=== PATIENT | female | born 1940 | race Caucasian/White ===

== ENCOUNTER 2017-04-10 05:10 | Inpatient (IN) | payer OTHER ==
--- NOTE | 2017-03-15 13:42 | HISTORY & PHYSICAL EXAMINATION ---
DATE OF ADMISSION: 04/10/2017 CHIEF COMPLAINT: Right knee pain. HISTORY OF PRESENT ILLNESS: Ms. Servin is a 76-year-old female with a 6-year history of right knee pain. The patient rates her worst pain at 10/10. She has pain with her daily activities. She has limited standing and walking tolerance. Pain is worse with weightbearing. The patient has had injections, physical therapy and NSAIDs without relief. She has failed conservative treatment and is scheduled for right knee replacement. PAST MEDICAL HISTORY: Hypertension, somewhat uncontrolled. She is currently being followed with her PCP. Systolics today was 175/102. Hypercholesterolemia, acid reflux, obesity with BMI of 42. She denies heart disease, diabetes or DVT. PAST SURGICAL HISTORY: Left total knee arthroplasty. SOCIAL HISTORY: The patient denies alcohol or tobacco use. She lives in a single story home. She is and retired. FAMILY HISTORY: Negative for DVT. MEDICATIONS: Duloxetine 30 mg daily, omeprazole 20 mg daily, lisinopril 20 mg daily, Aleve p.r.n., and Tylenol p.r.n. ALLERGIES: None. REVIEW OF SYSTEMS: See HPI. Ten other systems reviewed, all negative. PHYSICAL EXAMINATION: VITAL SIGNS: Height 5 feet 4 inches. Weight 220 pounds. BMI is 42. GENERAL: This is a well-developed and well-nourished female who is alert and oriented x3. Mood and affect are appropriate. HEENT: Normocephalic and atraumatic. Mucous membranes are moist and intact. NECK: Supple without lymphadenopathy. HEART: Regular rate and rhythm without murmurs, rubs or gallops. LUNGS: Clear to auscultation without wheezes or rhonchi. ABDOMEN: Soft and nontender. Bowel sounds are equal and active. EXTREMITIES: No ecchymosis, redness or warmth. Thigh and calf are soft and nontender. She does have some varicosities Distally. She has neutral alignment with moderate effusion. Range of motion is from 0-110 degrees with +2 medial laxity. She is neurovascularly intact with +5/5 strength. X-RAY EXAMINATION: AP and lateral views showed joint space narrowing and osteophyte formation. IMPRESSION: Degenerative joint disease, right knee. PLAN: The patient will be admitted for a right total knee arthroplasty by Dr. Fields. Her PCP is Dr. Wilkerson in [facility]. She is planning to do a home physical therapy with [facility] upon discharge. Referral has already been faxed. With her previous TKA, she had significant nausea and vomiting. I would recommend scopolamine patch intraoperatively. She is also requesting Tylenol and tramadol only for postop pain control.
--- NOTE | 2017-03-15 15:49 | PAT Medication Instructions ---
Service Date Mar 15, 2017. Current Home Medication List Acetaminophen Tab (Tylenol), 325 MG PO Q4H PRN for Pain Duloxetine Hcl (Cymbalta), 30 MG PO QAM Lisinopril (Prinivil), 20 MG PO QAM Naproxen (Aleve), 220 MG PO Q6H Omeprazole (Omeprazole), 1 TAB PO QAM Medication Instructions For Your Scheduled Surgery - Hold the following medications the morning of surgery: Lisinopril (Prinivil), 20 MG PO QAM Naproxen (Aleve), 220 MG PO Q6H (otherwise okay to continue per surgeon) - Take the following medications as scheduled the night before surgery: Acetaminophen Tab (Tylenol), 325 MG PO Q4H PRN for Pain (may take if needed up to 4 hours prior to surgery) Duloxetine Hcl (Cymbalta), 30 MG PO QAM Omeprazole (Omeprazole), 1 TAB PO QAM If you have any questions please call us at [phone] or [phone] or [phone]
[2017-03-15 16:01] VITALS: BMI 37.0
[2017-03-15 16:09] LABS: BASO % 0.3 %; BASO ABS # 0.02 K/uL (0-0.2); COMPLETE YES; EOS % 3.8 %; HEMATOCRIT 40.2 % (37-47); IG% 0.2 %; LYMPH % 30.1 %; LYMPH ABS # 1.89 K/uL (1.2-3.4); MEAN CELL VOLUME 92.8 fL (80-100); MEAN CORPUSCULAR HEMOGLOBIN 30.9 pg (25-34); MEAN CORPUSCULAR HGB CONC 33.3 g/dl (32-36); MEAN PLATELET VOLUME 10.3 fL (7.4-10.4); MONO % 7.7 %; NEUT % 57.9 %; PLATELET COUNT 183 K/uL (130-400); RED BLOOD COUNT 4.33 M/uL (4.2-5.4); WHITE BLOOD COUNT 6.27 K/uL (4.8-10.8)
[2017-03-15 16:17] LABS: PARTIAL THROMBOPLASTIN RATIO 1.2; PROTHROMBIN TIME (PATIENT) 10.4 SECONDS (9.0-12.0)
[2017-03-15 16:30] LABS: MANUAL MICROSCOPIC REQUIRED? NO; REVIEW REQ? NO; URINE APPEARANCE CLEAR (CLEAR); URINE BILIRUBIN NEG (NEG); URINE COLOR YELLOW; URINE NITRITE NEG (NEG); URINE SPECIFIC GRAVITY 1.021 (1.000-1.030); UROBILINOGEN NEG (NEG)
--- NOTE | 2017-03-15 16:34 | DIAGNOSTIC IMAGING REPORT ---
CHEST PREADMISSION(PA/LAT) HISTORY: Preop. COMPARISON: Chest 03/09/2013. FINDINGS: The lungs are clear. Cardiac silhouette is normal in size. No pleural effusions. No pneumothorax. IMPRESSION: No acute process. Electronically signed by: Florentino Chase M.D. 03/15/2017 4:32 PM Dictated Date/Time: 03/15/2017 4:31 PM
[~2017-04-10] VITALS: Ht 162.6 cm; Wt 98.7 kg
[2017-04-10] VITALS (9 sets, daily range): BP systolic 129–177; BP diastolic 75–89; PULSE 62–79; TEMP 36.3–37; O2SAT 94–100; Ht 162.6 cm; Wt 98.7 kg
[~2017-04-10 05:10] MED LIST: ACET325T96 PO; CYM/30 PO; LISI20TA3 PO; NAPR1TAB9 PO; OMEP20TA PO
[2017-04-10] MEDS ORDERED: LACTATED RINGER'S 1000ML 500 ML IV ONE (06:00)
[2017-04-10] MEDS ORDERED: ROPIVACAINE 5MG/ML 30 ML 150 MG, BUPIVACAINE/EPINEPHR 0.5% MPF 30 ML, KETOROLAC TROMETH... INFIL SCH ×7 (06:00)
[2017-04-10] MEDS ORDERED: LACTATED RINGER'S 1000ML 1,000 ML IV SCH (06:00)
[2017-04-10] MEDS ORDERED: CEFAZOLIN 2000MG IV PUSH 10 ML IV SCH (06:00)
[2017-04-10] MEDS ORDERED: BUPIVACAINE 0.5 % 5 MG/1 ML PF 10ML VIAL ONE (06:31)
[2017-04-10] MEDS ORDERED: MIDAZOLAM HCL 1 MG/ML 2ML VIAL ONE ×2 (06:40)
[2017-04-10] MEDS ORDERED: SCOPOLAMINE 1.5 MG TDSY TD ONE (06:44)
[2017-04-10] MEDS ORDERED: BACITRACIN 50000 UNIT VIAL ONE (06:56)
[2017-04-10] MEDS ORDERED: POVIDONE-IODINE OP SOLN 30 ML BTL ONE (06:56)
[2017-04-10] MEDS ORDERED: ATROPINE SULFATE 0.1 MG/ML 5ML SYR IV PRN (07:00)
[2017-04-10] MEDS ORDERED: EpHEDrine SULFATE INJ 50 MG/ML AMP IV PRN (07:00)
[2017-04-10] MEDS ORDERED: ONDANSETRON INJ 2 MG/ML 2 ML VIAL IV PRN ×2 (07:00→09:00)
[2017-04-10] MEDS ORDERED: NURSING VERBAL MED ORDER ONE (07:00)
[2017-04-10] MEDS ORDERED: FENTANYL CITRATE INJ 50 MCG/1 ML 2 ML VIAL IV PRN (07:00)
--- NOTE | 2017-04-10 07:07 | History & Physical Bridge Note ---
H&P Re-Evaluation Bridge Note: I have examined the patient, reviewed the History & Physical and in the interval since the performance of the History & Physical I have noted the following changes of clinical significance: No changes noted
[2017-04-10] MEDS ORDERED: LIDOCAINE HCL 2% 2 ML VIAL (20MG/ML) ONE (07:39)
[2017-04-10] MEDS ORDERED: PROPOFOL IV EMULSION 10 MG/ML 20 ML VIAL IV ONE ×2 (07:39→08:36)
[2017-04-10] MEDS ORDERED: ONDANSETRON INJ 2 MG/ML 2 ML VIAL ONE (07:42)
--- NOTE | 2017-04-10 08:19 | [facility] Operative Report ---
Operative Report Operative Date Apr 10, 2017. Pre-Operative Diagnosis Degenerative Joint Disease, Right Knee Post-Operative Diagnosis Degenerative Joint Disease, Right Knee Procedure(s) Performed Right Total Knee Arthroplasty Cemented utilizing An[employer]jar [employer] Nephew journey to patient-matched total knee arthroplasty size 3 femur to tibia 10 Ann Marie [address] Rob Fields Caustic Loader Surgeon(s) Elliott Vergara PA-C Estimated Blood Loss 5cc Findings Patient presents with severe end-stage tricompartmental degenerative joint disease of the right knee Nourse wants to conservative therapy x-rays revealed evidence of subchondral cystic changes medial osteophytes subchondral sclerosis [id number] changes varus alignment Specimens As Per Surgoekimberly Olivas. Right Knee Bone and Tissue Complication(s) None Disposition Recovery Room / PACU Indications Patient presents after failing attempts at conservative management including physical therapy anti-inflammatories relative rest activity modification with severe end-stage DJD of the and the patient presents for total knee arthroplasty after failing attempts injections viscous supplementations relative rest activity modifications bracing Description of Procedure After proper prepping and draping of the Right lower extremity anterior midline incision was made over the region of the extensor extensor mechanism after meticulous hemostasis was obtained and maintained in subcutaneous tissues a medial parapatellar incision was made The patella was subluxed lateralward the medial lateral gutter were cleaned from any hypertrophic synovitis and scar tissue of the distal femoral block was placed and the distal femoral osteotomy cut was made subsequently the chamfers anterior and posterior osteotomy cuts were made utilizing the 4-in-1 block the tibia was subsequently subluxed anteriorward medial and ateral meniscal remnants were excised in their entirety remnants of the anterior and posterior cruciate ligaments were excised in their entirety excellent exposure of the proximal tibia was obtained the tibial osteotomy guide was placed on the proximal tibial osteotomy cut was made once again the knee was irrigated with copious amounts of sterile saline solution the patella was subsequently everted lateralward thickened scar tissue around the patella was removed the patella was subsequently cut utilizing a freehand technique and was drilled prepared for final preparation and placement of patella socially flexion-extension gaps were checked and the equal and symmetric trials were placed to the appropriate femoral and tibial trials with poly-spacer being placed for equal flexion and extension gaps and full range of motion including extension to 0 and flexion to 140 the trial components after having been taken to recovery range of motion was subsequently removed meticulous hemostasis was obtained and maintained subsequently a knee block injection of joint cocktail including ropivacaine 0.5% 150 mg. Bupivacaine 0.5 % epinephrine 1-200,030 mL's toradol 30 mg dexamethasone 4 mg ketamine 10 mg clonidine 100 micrograms normal saline solution 30 mg was infiltrated into the soft tissues of the posterior knee medial lateral gutters and periosteal synovium special attention was paid to protect neurovascular structures at all times subsequently trial components having been removed the knee was irrigated with sterile saline solution. debris was removed the proximal tibia was subsequently prepared and was made ready for the placement of the tibial component tibial component was also cemented and tamped into position the femoral component was subsequently placed and cemented in the position the patellar component was subsequently cemented in position because hemostasis once again obtained and maintained wound having been thoroughly irrigated with debridement and debridement lavage was performed as well as a medial parapatellar incision closed with #1 Vicryl in interrupted fashion subcutaneous was closed with #2 Vicryl skin was closed with skin clips. PA-C was necessary for prepping and drapping as well as wound closure of deep fascia Sub cutaneous tissue and skin and was necessary for the case. A sterile compressive dressing was placed patient was taken to recovery in stable condition of report dictated by Donnie I attest to the content of the Intraoperative Record and any orders documented therein. Any exceptions are noted below. I attest to the content of the Intraoperative Record and any orders documented therein. Any exceptions are noted below.
[2017-04-10] MEDS ORDERED: ZOLPIDEM TARTRATE 5 MG TAB PO PRN (09:00)
[2017-04-10] MEDS ORDERED: ALUMINUM/MAGNESIUM/SIMETH (MAALOX MAX) 30 ML UDC PO PRN (09:00)
[2017-04-10] MEDS ORDERED: SOD PHOSPHATE/SOD BIPHOSPHATE ENEMA 132 ML BTL PR PRN (09:00)
[2017-04-10] MEDS ORDERED: BISACODYL 10 MG SUPP PR PRN (09:00)
[2017-04-10] MEDS ORDERED: KETOROLAC TROMETHAMINE 15 MG/ML VIAL IV. PRN (09:00)
[2017-04-10] MEDS ORDERED: OXYCODONE HCL IR 5 MG TAB (IMMEDIATE RELEASE) PO PRN (09:00)
[2017-04-10] MEDS ORDERED: MAGNESIUM HYDROXIDE SUSP 30 ML UDC PO PRN (09:00)
[2017-04-10] MEDS ORDERED: MoRPHine SULFATE 2 MG/ML CARP IV PRN (09:00)
--- NOTE | 2017-04-10 09:37 | Anesthesiology Progress Note ---
Anesthesia Post Op Note Date & Time Apr 10, 2017 at 09:37 Vital Signs Pain Intensity: 0 Vital Signs Past 12 Hours Date Time Temp Pulse Resp B/P (MAP) Pulse Ox O2 Delivery O2 Flow Rate FiO2 04/10/17 09:05 65 23 116/61 100 Oxymask 10 04/10/17 08:55 36.1 68 22 110/55 100 Oxymask 10 04/10/17 05:50 36.8 73 18 177/89 96 Room Air Notes Mental Status: alert / awake / arousable, participated in evaluation Pt Amnestic to Procedure: Yes Nausea / Vomiting: adequately controlled Pain: adequately controlled Airway Patency, RR, SpO2: stable & adequate BP & HR: stable & adequate Hydration State: stable & adequate Neuraxial Anesthesia: was administered, sensory block is resolving Anesthetic Complications: no major complications apparent
[2017-04-10] MEDS: TRANEXAMIC ACID INJ 1,000 MG in SYRINGE 0 ML IV SCH ×2 (09:52→11:11)
--- NOTE | 2017-04-10 09:53 | DIAGNOSTIC IMAGING REPORT ---
TWO VIEWS RIGHT KNEE CLINICAL HISTORY: Postoperative examination. FINDINGS: AP and crosstable lateral portable views of the right knee are obtained. A right knee arthroplasty is in near anatomic alignment. There has been undersurface remodeling of the patella. No acute fracture is seen. There are expected postoperative changes around the knee including a surgical drain, soft tissue edema, and subcutaneous gas. Atherosclerotic calcification is noted in the popliteal artery. IMPRESSION: Expected postoperative changes status post right knee arthroplasty. No acute fracture is seen. Electronically signed by: Mir Lindo M.D. 04/10/2017 9:51 AM Dictated Date/Time: 04/10/2017 9:51 AM
[2017-04-10] MEDS ORDERED: MoRPHine SULFATE 10 MG/ML CARP/VIAL IV PRN (10:45)
[2017-04-10] MEDS ORDERED: MoRPHine SULFATE 4 MG/ML 1 ML CARP\\VIAL IV PRN (10:45)
[2017-04-10] MEDS: D5W AND 1/2NSS + 20MEQ KCL 1,000 ML IV SCH ×2 (11:30→20:30)
[2017-04-10] MEDS: ACETAMINOPHEN 500 MG TAB PO SCH ×2 (13:47→22:28)
[2017-04-10] MEDS: CEFAZOLIN IV 2,000 MG in SYRINGE 0 ML IV SCH ×2 (15:05→22:29)
[2017-04-10] MEDS: DOCUSATE SODIUM 100 MG CAP PO SCH (20:30)
[2017-04-10] MEDS: SENNA 8.6 MG TAB PO SCH (20:30)
[2017-04-10] MEDS: ASPIRIN 81 MG ECTAB PO SCH (20:31)
[2017-04-11 03:41] VITALS: BP 131/77; PULSE 66; TEMP 36.8; O2SAT 97
[2017-04-11 05:55] LABS: HEMATOCRIT 34.2 % (37-47); MEAN CELL VOLUME 93.2 fL (80-100); MEAN CORPUSCULAR HEMOGLOBIN 31.3 pg (25-34); MEAN CORPUSCULAR HGB CONC 33.6 g/dl (32-36); MEAN PLATELET VOLUME 10.4 fL (7.4-10.4); PLATELET COUNT 143 K/uL (130-400); RED BLOOD COUNT 3.67 M/uL (4.2-5.4); WHITE BLOOD COUNT 10.62 K/uL (4.8-10.8)
[2017-04-11] MEDS: D5W AND 1/2NSS + 20MEQ KCL 1,000 ML IV SCH (05:59)
[2017-04-11] MEDS: ACETAMINOPHEN 500 MG TAB PO SCH ×3 (05:59→21:55)
[2017-04-11] MEDS ORDERED: TRANEXAMIC ACID INJ 1,000 MG in SYRINGE 0 ML IV SCH (06:00)
[2017-04-11 06:08] LABS: INR 1.1 (0.9-1.1); PROTHROMBIN TIME (PATIENT) 11.3 SECONDS (9.0-12.0)
[2017-04-11 06:24] LABS: BUN/CREATININE RATIO 12.9 (10-20); CREATININE 1.01 mg/dl (0.60-1.20); POTASSIUM 4.1 mmol/L (3.5-5.1)
[2017-04-11 07:02] VITALS: BP 146/75; PULSE 62; TEMP 36.7; O2SAT 98
--- NOTE | 2017-04-11 07:56 | Orthopedic Progress Note ---
Orthopedic Progress Note Date of Service Apr 11, 2017. Subjective Post OP Day: 1 Reports: feeling well Objective N/V intact (Footdrop noted), dressing C/D/I (Prevena and Hemovac in place) Date Time Temp Pulse Resp B/P (MAP) Pulse Ox O2 Delivery O2 Flow Rate FiO2 04/11/17 03:41 36.8 66 16 131/77 (95) 97 Room Air 04/10/17 23:45 Room Air 04/10/17 23:40 37.0 79 16 142/81 (101) 96 Room Air 04/10/17 19:56 37.0 77 18 137/79 (98) 94 Room Air 04/10/17 15:45 Nasal Cannula 2.0 04/10/17 15:19 36.6 62 18 159/82 (107) 98 Nasal Cannula 2.0 04/10/17 13:10 36.7 62 20 162/82 (108) 99 Nasal Cannula 2.0 04/10/17 11:56 36.5 62 16 154/88 (110) 98 Nasal Cannula 2.0 04/10/17 11:02 63 18 148/87 (107) 98 Nasal Cannula 2.0 04/10/17 10:27 65 17 157/84 (108) 100 Nasal Cannula 2.0 04/10/17 10:00 99 Nasal Cannula 2.0 04/10/17 10:00 99 Nasal Cannula 2.0 04/10/17 10:00 36.3 63 16 129/75 (93) 99 Nasal Cannula 2.0 04/10/17 09:35 36.2 64 16 130/65 97 Nasal Cannula 2 04/10/17 09:25 65 14 139/64 99 Nasal Cannula 2 04/10/17 09:15 65 14 124/62 98 Nasal Cannula 2 04/10/17 09:05 65 23 116/61 100 Oxymask 10 04/10/17 08:55 36.1 68 22 110/55 100 Oxymask 10 Laboratory Results 24 Hours: Test 04/11/17 05:26 Hematocrit 34.2 % Hemoglobin 11.5 g/dL Prothromb Time International Ratio 1.1 Prothrombin Time 11.3 SECONDS Assessment & Plan Assessment: 76 yo female stable POD #1 s/p right TKA, footdrop Plan: 1. Med management 2. DVT prophylaxis- ASA, SCDs 3. PT/OT 4. D/C planning- home w/ HH
[2017-04-11] MEDS: DULOXETINE (CYMBALTA) 30 MG CAP PO SCH (09:27)
[2017-04-11] MEDS: MULTIVITAMIN TAB PO SCH (09:27)
[2017-04-11] MEDS: DOCUSATE SODIUM 100 MG CAP PO SCH ×2 (09:27→21:06)
[2017-04-11] MEDS: PANTOprazole SOD 40 MG TAB PO SCH (09:27)
[2017-04-11] MEDS: TRAMADOL HCL 50 MG TAB PO PRN (09:27)
[2017-04-11] MEDS: ASPIRIN 81 MG ECTAB PO SCH ×2 (09:27→21:06)
[2017-04-11] MEDS: CeleBREX 200 MG CAP PO SCH ×2 (09:28→21:07)
[2017-04-11 15:00] VITALS: BP 149/79; PULSE 66; TEMP 36.7; O2SAT 94
[2017-04-11] MEDS: SENNA 8.6 MG TAB PO SCH (21:06)
[2017-04-11 22:46] VITALS: BP 183/86; PULSE 81; TEMP 37; O2SAT 94
[2017-04-12] VITALS: BP 150/77
[2017-04-12] MEDS: ACETAMINOPHEN 500 MG TAB PO SCH (05:28)
[2017-04-12 06:39] VITALS: BP 154/87; PULSE 69; TEMP 36.5; O2SAT 97
[2017-04-12 07:49] VITALS: BP 140/70; PULSE 68; TEMP 36.8; O2SAT 97
[2017-04-12] MEDS: TRAMADOL HCL 50 MG TAB PO PRN (07:55)
[2017-04-12] MEDS: MULTIVITAMIN TAB PO SCH (07:56)
[2017-04-12] MEDS: CeleBREX 200 MG CAP PO SCH (07:56)
[2017-04-12] MEDS: DOCUSATE SODIUM 100 MG CAP PO SCH (07:56)
[2017-04-12] MEDS: ASPIRIN 81 MG ECTAB PO SCH (07:57)
[2017-04-12] MEDS: PANTOprazole SOD 40 MG TAB PO SCH (07:57)
[2017-04-12] MEDS: DULOXETINE (CYMBALTA) 30 MG CAP PO SCH (07:57)
--- NOTE | 2017-04-12 07:57 | Orthopedic Progress Note ---
Orthopedic Progress Note Date of Service Apr 12, 2017. Subjective Post OP Day: 2 Reports: feeling well, complaints (mild pain off and on in the thigh ) Objective calves soft nontender, N/V intact, dressing C/D/I (Prevena intact), A&O x3, toes mobile Date Time Temp Pulse Resp B/P (MAP) Pulse Ox O2 Delivery O2 Flow Rate FiO2 04/12/17 07:49 36.8 68 17 140/70 (93) 97 Room Air 04/12/17 06:39 36.5 69 16 154/87 (109) 97 Room Air 04/12/17 00:15 Room Air 04/12/17 00:00 150/77 (101) 04/11/17 22:46 37.0 81 16 183/86 (118) 94 Room Air 04/11/17 15:30 Room Air 04/11/17 15:00 36.7 66 16 149/79 (102) 94 Room Air 04/11/17 09:48 Room Air Assessment & Plan Assessment: 76 yo female stable POD #2 s/p right TKA, Foot drop resolved Plan: Continue PT Plan for dc to home today with Home Health services Inhouse Planning Pain Management: Celebrex, Ultram, Morphine, PO Tylenol, Oxy IR DVT Prophylaxis: TEDs, SCDs, ASA Discharge Planning Discharge Planning: home with home health
[2017-04-12 08:01] VITALS: O2SAT 97
[2017-04-12] MEDS ORDERED: ASPEC81 PO (08:03)
[2017-04-12] MEDS ORDERED: CLB200 PO (08:03)
[2017-04-12] MEDS ORDERED: ACET-24 PO (08:03)
[2017-04-12] MEDS ORDERED: SNK PO (08:03)
[2017-04-12] MEDS ORDERED: RXC5 PO (08:03)
--- NOTE | 2017-04-12 08:06 | Discharge Instructions ---
Discharge Instructions Date of Service Apr 12, 2017. Admission Reason for Admission: Right Knee Osteoarthritis Discharge Discharge Diagnosis / Problem: Right Knee Djd Discharge Goals Goal(s): Decrease discomfort, Improve function Activity Recommendations Activity Limitations: per Instructions/Follow-up section Weightbearing Status: Right weightbearing (as tolerated) . Instructions / Follow-Up Instructions / Follow-Up ACTIVITY RECOMMENDATIONS: SELF CARE INSTRUCTIONS AFTER TOTAL KNEE REPLACEMENT A. You may need to continue a physical therapy program after discharge from the hospital. There are several options available to you. Your doctor will assist you in selecting the best one for you. 1. An out-patient facility 2 to 3 times a week for therapy or home therapy. 2. Continue working on all exercises taught to you in the hospital. Your goals should be to increase bending of your knee to 90 degrees and beyond and to fully straighten your knee. B. You may progress at your own pace from walking with a walker or crutches to a cane; then to no assistive devices. C. Make walking a part of your daily routine. Be up as much as comfortable with rest periods throughout the day. Rest with leg elevation is very important. Use the ice wrap frequently for the first 3-4 weeks. D. There are no restrictions on activities. You may ride in a car, shop, participate in treatment specialist and all social activities. E. Wear the long elastic stockings (JANEE hose) 20 hours a day for 2 weeks after surgery. They can be removed several times a day for laundering and for a bath. F. You may shower, no tub baths until cleared by your doctor. SPECIAL CARE INSTRUCTIONS: VERY IMPORTANT TO READ AND REVIEW A. There are a few signs you need to watch for after you are home. Call [facility] if you notice any of the followin. Increased severe knee pain. Some pain is expected especially when you exercise. 2. Increased swelling in your leg or knee; pain or swelling of the calf muscle in either lower leg. 3. Any fluid drainage from the incision. 4. Shortness of breath or chest pain. B. Please call [facility] at if you have any concerns or questions about your operation or recovery. The doctor or his nurse will return your call promptly. C. You must take antibiotics before dental work, bladder, bowel or other surgery. Your doctor will provide you with a permanent care to carry describing this precaution. IMPORTANT: * REMEMBER TO TAKE ASPIRIN, 81 MG, TWICE DAILY FOR 4 WEEKS UNLESS OTHERWISE DIRECTED. THIS IS YOUR BLOOD THINNER. * HIGH RISK PATIENTS MAY BE PRESCRIBED A STRONGER BLOOD THINNER. THIS WILL BE PROVIDED AT DISCHARGE. * CALL IF INCREASED PAIN, REDNESS, DRAINAGE OR FEVER GREATER THAT 101. * WEAR JANEE HOSE 20 HOURS PER DAY FOR 2 WEEKS. * Prevena- This is a large suction dressing covering your incision. This will help pull any excess drainage from the wound and allow your incision to heal properly. You may shower with this if you can keep the unit outside of the shower. If any bleeding or leakage is noted please call your doctor's office. This will remain on your incision for 7 days and then should be removed. This can be done yourself or by the home nursing staff if applicable. The entire unit is disposable once removed. Once removed, keep incision clean and dry. If redness or drainage is noted, please call your surgeon. . FOLLOW UP VISIT: If appointment is not already scheduled: Please call [facility] to make a follow-up appointment for 2 weeks after your surgery at . Current Hospital Diet Patient's current hospital diet: Regular Diet Discharge Diet Recommended Diet: Regular Diet Procedures Procedures Performed: Right Total Knee Arthroplasty Cemented utilizing [employer]du[employer] Nephew journey to patient-matched total knee arthroplasty size 3 femur to tibia 10 Ann Marie 29 oval patella Pending Studies Studies pending at discharge: no Laboratory Results Hemoglobin A1c Test 03/15/17 15:39 Range/Units Estimated Average Glucose 100 mg/dl Hemoglobin A1c 5.1 4.5-5.6 % Medical Emergencies . Who to Call and When: Medical Emergencies: If at any time you feel your situation is an emergency, please call 911 immediately. . Non-Emergent Contact Non-Emergency issues call your: Surgeon Call Non-Emergent contact if: temperature is above 101.5, your pain is not controlled, your pain is worsening, wound has increased drainage, wound has increased redness . "Provider Documentation" section prepared by Jonny Ty. . VTE Core Measure Inpt VTE Proph given/why not?: Other Anticoagulation, T.E.D. Stockings, SCD's [place] Drug Monitoring Program Search Results: patient reviewed within database, no issues identified
[2017-04-12 08:34] VITALS: BP 140/70; PULSE 68; TEMP 36.8; O2SAT 97
[2017-04-12 09:26] VITALS: BP 150/81; PULSE 72; O2SAT 95
[2017-04-12] MEDS ORDERED: TRAM-453 PO (11:49)
--- NOTE | 2017-04-12 16:12 | Discharge Summary ---
Orthopedic Discharge Summary Admission Date/Reason Apr 10, 2017 at 06:45 Right Knee Osteoarthritis. Discharge Date/Disposition Apr 12, 2017 Home with services Diagnosis Principal Diagnosis: right knee djd Procedure(s) Performed Right Total Knee Arthroplasty Cemented utilizing Andu[employer] Nephew journey to patient-matched total knee arthroplasty size 3 femur to tibia 10 Ann Marie 29 oval patella Consultations NONE Medication Reconciliation New Medications: Tramadol Hcl (Ultram) 50 Mg Tab 50-100 MG PO Q4H, #60 TAB PRN PAIN Acetaminophen (Sb Non-Aspirin Extra Stre) 500 Mg Tab 1000 MG PO Q8 for 21 Days, #126 TAB Aspirin (Aspirin EC Low Dose) 81 Mg Ectab 81 MG PO BID for 30 Days Celecoxib (Celebrex) 200 Mg Cap 200 MG PO BID, #60 CAP Senna (Senna Lax) 8.6 Mg Tab 17.2 MG PO HS, #30 TAB hold for loose stools Continued Medications: Duloxetine Hcl (Cymbalta) 30 Mg Cap 30 MG PO QAM, CAP Lisinopril (Prinivil) 20 Mg Tab 30 MG PO QAM, TAB Omeprazole (Omeprazole) 20 Mg Tab 1 TAB PO QAM Discontinued Medications: Acetaminophen Tab (Tylenol) 325 Mg Tab 325 MG PO Q4H PRN for Pain, TAB Naproxen (Aleve) 220 Mg Tab 220 MG PO Q6H for Pain, TAB Admission Physical Exam As per Admitting History & Physical. Hospital Course Patient was a same day admission after undergoing a successful right TKA. she tolerated the procedure well. Post-operatively, her activity was progressed and well tolerated. Please refer to daily progress notes and PT notes for complete details. After exam on 04/12/17, patient felt to be stable for discharge home with HHPT. Patient will f/u in the office in 2 weeks for further evaluation including x-rays and incision check, sooner if having any issues or concerns. Below are pertinent labs/studies during their hospital stay: Last Vital Signs Documentation Date Time Temp Pulse Resp B/P (MAP) Pulse Ox O2 Delivery O2 Flow Rate FiO2 04/12/17 09:26 72 95 04/12/17 08:34 36.8 17 Room Air 04/12/17 07:49 140/70 (93) 04/10/17 15:45 2.0 Last Resulted CBC 04/11/17 05:26 Last Resulted BMP 04/11/17 05:26 Discharge Instructions ACTIVITY RECOMMENDATIONS: SELF CARE INSTRUCTIONS AFTER TOTAL KNEE REPLACEMENT A. You may need to continue a physical therapy program after discharge from the hospital. There are several options available to you. Your doctor will assist you in selecting the best one for you. 1. An out-patient facility 2 to 3 times a week for therapy or home therapy. 2. Continue working on all exercises taught to you in the hospital. Your goals should be to increase bending of your knee to 90 degrees and beyond and to fully straighten your knee. B. You may progress at your own pace from walking with a walker or crutches to a cane; then to no assistive devices. C. Make walking a part of your daily routine. Be up as much as comfortable with rest periods throughout the day. Rest with leg elevation is very important. Use the ice wrap frequently for the first 3-4 weeks. D. There are no restrictions on activities. You may ride in a car, shop, participate in school bus attendant and all social activities. E. Wear the long elastic stockings (JANEE hose) 20 hours a day for 2 weeks after surgery. They can be removed several times a day for laundering and for a bath. F. You may shower, no tub baths until cleared by your doctor. SPECIAL CARE INSTRUCTIONS: VERY IMPORTANT TO READ AND REVIEW A. There are a few signs you need to watch for after you are home. Call [facility] if you notice any of the followin. Increased severe knee pain. Some pain is expected especially when you exercise. 2. Increased swelling in your leg or knee; pain or swelling of the calf muscle in either lower leg. 3. Any fluid drainage from the incision. 4. Shortness of breath or chest pain. B. Please call [facility] at if you have any concerns or questions about your operation or recovery. The doctor or his nurse will return your call promptly. C. You must take antibiotics before dental work, bladder, bowel or other surgery. Your doctor will provide you with a permanent care to carry describing this precaution. IMPORTANT: * REMEMBER TO TAKE ASPIRIN, 81 MG, TWICE DAILY FOR 4 WEEKS UNLESS OTHERWISE DIRECTED. THIS IS YOUR BLOOD THINNER. * HIGH RISK PATIENTS MAY BE PRESCRIBED A STRONGER BLOOD THINNER. THIS WILL BE PROVIDED AT DISCHARGE. * CALL IF INCREASED PAIN, REDNESS, DRAINAGE OR FEVER GREATER THAT 101. * WEAR JANEE HOSE 20 HOURS PER DAY FOR 2 WEEKS. Zip Skin Closure You will be given instructions by nursing staff at the time of discharge to care for your Zip Closure System. This devices uses plastic straps to keep your incision closed and protected throughout your recovery. If you have any questions please refer to these instructions first. FOLLOW UP VISIT: If appointment is not already scheduled: Please call [facility] to make a follow-up appointment for 2 weeks after your surgery at .
== END 2017-04-12 12:33 | disposition home health service (06) | DRG 470 ==
LOC: C.ACU 05:10 → C.3E 06:45 → ENRESERV 09:30
PROVIDERS: ADMIT Orthopaedic Surgery; ATTEND Orthopaedic Surgery
PROC: 0SRC0J9 Replacement of Right Knee Joint with Synthetic Substitute, Cemented, Open Approach (ICD-10-PCS; principal; 2017-04-10 07:00)
DX: M17.11 Unilateral primary osteoarthritis, right knee (principal); Z68.41 Body mass index [BMI] 40.0-44.9, adult; I10 Essential (primary) hypertension; E78.00 Pure hypercholesterolemia, unspecified; K21.9 Gastro-esophageal reflux disease without esophagitis; E66.9 Obesity, unspecified; Z96.652 Presence of left artificial knee joint

== ENCOUNTER 2017-10-01 15:36 | Observation (INO) | payer OTHER ==
[~2017-10-01] VITALS: Ht 162.6 cm; Wt 95.1 kg
[~2017-10-01 15:36] MED LIST changes: +ACET-24 PO; -ACET325T96 PO; +ASPI-320 PO; +CLB200 PO; -NAPR1TAB9 PO; +SNK PO
[2017-10-01] MEDS ORDERED: ASPIRIN 324 MG CHEW PO STA (16:07)
[2017-10-01] MEDS ORDERED: HEPARIN 25000 UNIT/500 ML D5W ONE (16:29)
[2017-10-01] MEDS ORDERED: HEPARIN SOD (PORCINE) 1000 UNIT/ML 10 ML VIAL ONE (16:29)
[2017-10-01] MEDS ORDERED: OPTIRAY 320 IV PRN (16:30)
[2017-10-01 16:35] LABS: HEMATOCRIT 41.4 % (37-47); HEMOGLOBIN 14.3 g/dL (12.0-16.0); MEAN CORPUSCULAR HEMOGLOBIN 30.8 pg (25-34); MEAN CORPUSCULAR HGB CONC 34.5 g/dl (32-36); MEAN PLATELET VOLUME 9.8 fL (7.4-10.4); PLATELET COUNT 102 K/uL (130-400); RED CELL DISTRIBUTION WIDTH CV 14.2 % (11.5-14.5); RED CELL DISTRIBUTION WIDTH SD 46.2 fL (36.4-46.3); WHITE BLOOD COUNT 4.06 K/uL (4.8-10.8)
[2017-10-01 16:37] LABS: PTT PATIENT 29.9 SECONDS (21.0-31.0)
[2017-10-01 16:45] LABS: BASO % 0.2 %; BASO ABS # 0.01 K/uL (0-0.2); EOS % 0.5 %; EOS ABS # 0.02 K/uL (0-0.5); IG# 0.02 K/uL (0.00-0.02); LYMPH ABS # 0.77 K/uL (1.2-3.4); MONO % 9.6 %; MONO ABS # 0.39 K/uL (0.11-0.59); NEUT % 70.2 %; NEUT ABS # 2.85 K/uL (1.4-6.5)
[2017-10-01 16:47] LABS: CALCIUM 8.4 mg/dl (8.5-10.1); CREATININE 1.14 mg/dl (0.60-1.20); POTASSIUM 4.1 mmol/L (3.5-5.1)
[2017-10-01] MEDS ORDERED: DOXY1TAB6 PO (17:21)
--- NOTE | 2017-10-01 17:29 | DIAGNOSTIC IMAGING REPORT ---
CT ANGIOGRAM OF THE CHEST CLINICAL HISTORY: Atypical chest pain COMPARISON STUDY: Chest x-ray dated 03/15/2017 TECHNIQUE: Following the IV administration of 94 mL of Optiray-320, CT angiogram of the thorax was performed from the thoracic inlet to the lung bases utilizing the pulmonary embolus protocol. Images are reviewed in the axial, sagittal, and coronal planes. IV contrast was administered without complication. MIP imaging was performed. A dose lowering technique was utilized adhering to the principles of ALARA. CT DOSE: 449.33 mGy.cm FINDINGS: Right paratracheal lymph nodes are the upper limits of normal in size. There is no pathologic axillary or hilar lymphadenopathy. Atheromatous changes are present within the thoracic aorta. There is mild ectasia of the ascending thoracic aorta which measures 37 mm. There were no pulmonary artery filling defects to indicate acute pulmonary embolism. No pleural effusions are visualized. There are dependent groundglass opacities, likely atelectatic. There is respiratory motion artifact. IMPRESSION: 1. No evidence of acute pulmonary embolism 2. Dependent groundglass opacities, likely atelectatic Electronically signed by: Jordy Ballard M.D. 10/01/2017 5:27 PM Dictated Date/Time: 10/01/2017 5:24 PM
[2017-10-01] MEDS ORDERED: LISI-725 PO (17:36)
[2017-10-01] MEDS ORDERED: NAPR1TAB9 PO (17:36)
[2017-10-01] MEDS ORDERED: ACET-1256 PO (17:36)
[2017-10-01] MEDS ORDERED: LISI1TAB3 PO (17:41)
[2017-10-01] MEDS ORDERED: NITROGLYCERIN 0.4 MG SL PER TAB CHARGE SL PRN (18:00)
[2017-10-01] MEDS ORDERED: ONDANSETRON INJ 2 MG/ML 2 ML VIAL IV PRN (18:00)
[2017-10-01] MEDS ORDERED: POLYETHYLENE (MIRALAX) 17 GM PACK PO PRN (18:00)
[2017-10-01] MEDS ORDERED: ACETAMINOPHEN 325 MG TAB PO PRN (18:00)
--- NOTE | 2017-10-01 18:05 | EMERGENCY ROOM VISIT NOTE ---
History Report prepared by Barber: Cheikh Chery Under the Supervision of: Dr. Rob Orosco M.D. First contact with patient: 15:56 Chief Complaint: CHEST PAIN Stated Complaint: CHEST PAIN Nursing Triage Summary: Patient went to PCP Dr Wilkerson because she wasn't feeling well and c/o left neck pain into shoulder and down left arm. Patient states this happened 2 weeks ago and again today. Denies chest pain at the present time. C/o aches in all her joints today which patient states is worse than normal. History of Present Illness The patient is a 76 year old female with a history of hypertension who presents to the Emergency Room with complaints of intermittent left neck pain that radiates down into her left arm and shoulder blade that started 2 weeks ago. She states that she was in bed in the evening 2 weeks ago, and started having this achy, "awful" pain behind her left ear in her neck, down into her left shoulder blade, and down her left arm. The patient notes that she had no chest pain at the time, and her pain lasted the entire night. She says that laying down worsened the pain, but the pain was not worsened with movement. She says that she had another episode of the same pain today, and was seen by her family doctor (Dr. Wilkerson), and was sent here for evaluation due to an abnormal EKG. The patient adds that she has been short of breath on exertion over the past couple weeks, but exertion does not bring on any chest pain. She notes that she has been getting hot and cold at times, but denies any sweating. She adds that she has started having a cough today. The patient denies any abdominal pain, or worsening leg pain or swelling. She states that she has no pain currently, but has been feeling like she has "not been getting enough air" today. The patient says that she has no history of heart disease or clots in her lung. She notes that her siblings both have heart disease. The patient is a non-smoker. Source of History: patient Onset: 2 weeks ago Position: neck (left) Symptom Intensity: "awful" Quality: ache Timing: intermittent Modifying Factors (Worsening): other (laying down) Associated Symptoms: + cough, + SOB, No diaphoresis, No chest pain, No abdominal pain Note: Associated symptoms: Left shoulder blade pain down left arm. Denies worsening leg pain or swelling. Review of Systems See HPI for pertinent positives & negatives. A total of 10 systems reviewed and were otherwise negative. Past Medical & Surgical Medical Problems: (1) Elevated troponin (2) HTN (hypertension) (3) SOB (shortness of breath) Family History Heart disease Social History Smoking Status: Never Smoker Marital Status: Housing Status: lives with family Occupation Status: retired Current/Historical Medications Scheduled Lisinopril (Zestril), 30 MG PO DAILY Omeprazole (Omeprazole), 1 TAB PO QAM Scheduled PRN Acetaminophen (Tylenol), 1-2 TABS PO Q8 PRN for Pain or Fever Allergies Coded Allergies: Oxycodone (Verified Adverse Reaction, Intermediate, nausea, 04/10/17) Gabapentin (Verified Adverse Reaction, Unknown, NIGHTMARES, 04/10/17) Physical Exam Vital Signs Date Time Temp Pulse Resp B/P (MAP) Pulse Ox O2 Delivery O2 Flow Rate FiO2 10/01/17 17:34 77 20 161/83 96 Room Air 10/01/17 16:16 80 10/01/17 15:43 Room Air 10/01/17 15:40 36.9 81 16 183/102 95 Physical Exam Constitutional: Vital signs reviewed. Eyes: Pupils are equal round reactive to light. Conjunctiva are noninjected. ENT: Pharynx is clear without erythema or exudate. Mucous membranes are moist. Neck supple without meningeal signs. No midline tenderness to the cervical spine. Respiratory: Clear to auscultation bilaterally. Breath sounds are equal bilaterally. Cardiovascular: Regular rate and rhythm. No rubs or gallops. GI: Soft, nondistended and nontender. Bowel sounds are present. Musculoskeletal: No peripheral edema. No lower extremity tenderness. No scapular tenderness or shoulder tenderness on the left side. Integumentary: No cyanosis. Neurological: The patient is awake and alert. No focal deficits. Psychiatric: Normal affect. Medical Decision & Procedures ER Provider Diagnostic Interpretation: CT results as stated below per my review and radiologist interpretation. CT ANGIOGRAM OF THE CHEST CLINICAL HISTORY: Atypical chest pain COMPARISON STUDY: Chest x-ray dated 03/15/2017 TECHNIQUE: Following the IV administration of 94 mL of Optiray-320, CT angiogram of the thorax was performed from the thoracic inlet to the lung bases utilizing the pulmonary embolus protocol. Images are reviewed in the axial, sagittal, and coronal planes. IV contrast was administered without complication. MIP imaging was performed. A dose lowering technique was utilized adhering to the principles of ALARA. CT DOSE: 449.33 mGy.cm FINDINGS: Right paratracheal lymph nodes are the upper limits of normal in size. There is no pathologic axillary or hilar lymphadenopathy. Atheromatous changes are present within the thoracic aorta. There is mild ectasia of the ascending thoracic aorta which measures 37 mm. There were no pulmonary artery filling defects to indicate acute pulmonary embolism. No pleural effusions are visualized. There are dependent groundglass opacities, likely atelectatic. There is respiratory motion artifact. IMPRESSION: 1. No evidence of acute pulmonary embolism 2. Dependent groundglass opacities, likely atelectatic Electronically signed by: Jordy Ballard M.D. 10/01/2017 5:27 PM Dictated Date/Time: 10/01/2017 5:24 PM Laboratory Results 10/01/17 15:55 Red Blood Count 4.65, Mean Corpuscular Volume 89.0, Mean Corpuscular Hemoglobin 30.8, Mean Corpuscular Hemoglobin Concent 34.5, Mean Platelet Volume 9.8, Neutrophils (%) (Auto) 70.2, Lymphocytes (%) (Auto) 19.0, Monocytes (%) (Auto) 9.6, Eosinophils (%) (Auto) 0.5, Basophils (%) (Auto) 0.2, Neutrophils # (Auto) 2.85, Lymphocytes # (Auto) 0.77, Monocytes # (Auto) 0.39, Eosinophils # (Auto) 0.02, Basophils # (Auto) 0.01 10/01/17 15:55 Test 10/01/17 15:55 10/01/17 16:00 10/01/17 17:46 White Blood Count 4.06 K/uL (4.8-10.8) Red Blood Count 4.65 M/uL (4.2-5.4) Hemoglobin 14.3 g/dL (12.0-16.0) Hematocrit 41.4 % (37-47) Mean Corpuscular Volume 89.0 fL (80-100) Mean Corpuscular Hemoglobin 30.8 pg (25-34) Mean Corpuscular Hemoglobin Concent 34.5 g/dl (32-36) Platelet Count 102 K/uL (130-400) Mean Platelet Volume 9.8 fL (7.4-10.4) Neutrophils (%) (Auto) 70.2 % Lymphocytes (%) (Auto) 19.0 % Monocytes (%) (Auto) 9.6 % Eosinophils (%) (Auto) 0.5 % Basophils (%) (Auto) 0.2 % Neutrophils # (Auto) 2.85 K/uL (1.4-6.5) Lymphocytes # (Auto) 0.77 K/uL (1.2-3.4) Monocytes # (Auto) 0.39 K/uL (0.11-0.59) Eosinophils # (Auto) 0.02 K/uL (0-0.5) Basophils # (Auto) 0.01 K/uL (0-0.2) RDW Standard Deviation 46.2 fL (36.4-46.3) RDW Coefficient of Variation 14.2 % (11.5-14.5) Immature Granulocyte % (Auto) 0.5 % Immature Granulocyte # (Auto) 0.02 K/uL (0.00-0.02) Platelet Estimate DECREASED Prothrombin Time 11.0 SECONDS (9.0-12.0) Prothromb Time International Ratio 1.0 (0.9-1.1) Activated Partial Thromboplast Time 29.9 SECONDS (21.0-31.0) Partial Thromboplastin Ratio 1.2 Anion Gap 2.0 mmol/L (3-11) Est Creatinine Clear Calc Drug Dose 47.3 ml/min Estimated GFR () 54.1 Estimated GFR (Non- 46.7 BUN/Creatinine Ratio 13.7 (10-20) Calcium Level 8.4 mg/dl (8.5-10.1) Bedside Troponin I 0.360 ng/ml (0-0.045) Laboratory results as reviewed by me. Medications Administered Medications (Trade) Dose Ordered Sig/Jorge Route Start Time Stop Time Status Last Admin Dose Admin Aspirin (Aspirin Chew) 324 mg NOW STAT PO 10/01/17 16:07 10/01/17 16:08 DC 10/01/17 16:13 324 MG Heparin Sodium/ Dextrose (Heparin 25,000 Unit/500ml D5W) 25,000 unit STK-MED ONCE .ROUTE 10/01/17 16:29 10/01/17 16:30 DC 10/01/17 16:45 25,000 UNIT Heparin Sodium (Porcine) (Heparin Iv Bolus) 10,000 unit STK-MED ONCE .ROUTE 10/01/17 16:29 10/01/17 16:30 DC 10/01/17 16:43 5,000 UNIT ECG Per My Interpretation Indication: SOB/dyspnea Rate (beats per minute): 76 Rhythm: normal sinus Findings: ST depression (Lateral), other (ST elevation in AVR) ED Course 1558: The patient was evaluated in room A3. A complete history and physical exam was performed. 1607: Aspirin Chew 324 mg PO. 1616: Heparin Sodium/Dextrose 1 ea N/A. 1617: I reevaluated the patient and she has a troponin of 0.36. I discussed this with the patient and recommended IV Heparin. I discussed the risk and benefits of Heparin with her, and will obtain a CT. 163: I spoke with Rama Mccoy. We discussed the patient and her results. The patient will be further evaluated by Rama. 1754: I reevaluated the patient and let her know about the test results. She is not having any chest discomfort or back pain currently. She expressed understanding and agreement of the treatment plan. She will be evaluated for further treatment. Medical Decision This is a 76-year-old female presents with shoulder and back pain. Differential diagnosis includes anginal equivalent, acute coronary syndrome, pulmonary embolism, pneumothorax, pleurisy, cervical radiculopathy. I did perform a limited focused review of portions of the patient's old chart on the electronic medical record. The patient has had no recent pertinent visits to this hospital. I did evaluate the patient as noted above. IV access was established. The patient was placed on a continuous awake overnight monitor. I did order and personally review the patient's 12-lead EKG and chest x-ray as described above. The patient has ST elevation in aVR with some ST depressions in the precordial leads as well as the lateral leads. The patient is currently without any symptoms. She does not have any chest pain or any back or neck or shoulder pain. I did treat her with aspirin. I did order and review the patient's blood work as noted in the electronic medical record. The patient does have an elevated troponin. I did discuss risks and benefits with her regarding heparin. She did agree to heparin therapy. I did start her on IV heparin with a bolus and continuous drip. I did order a CT of the chest. I did review the images myself as well as the radiology report as described above. She does not have any evidence of pulmonary embolism. I did discuss the test results with the patient. I did discuss case with the hospitalist and case packer. She is currently asymptomatic. Medication Reconcilliation Current Medication List: was personally reviewed by me Blood Pressure Screening Patient's blood pressure: Elevated blood pressure Referred to hospitalist. Consults Time Called: 1630 Consulting Physician: Rama Mccoy Returned Call: 1635 I spoke with Rama Mccoy. We discussed the patient and her results. The patient will be further evaluated by Rama. Impression Primary Impression: Non-STEMI (non-ST elevated myocardial infarction) Critical Care I have personally spent 32 minutes of critical care time in the direct management of this patient. This includes bedside care, interpretation of diagnostic studies, and testing, discussion with consultants, patient, and family members, and other required patient management activities. This 32 minutes is in excess of all separately billable procedures. Scribe Attestation The scribe's documentation has been prepared under my direct and personally reviewed by me in its entirety. I confirm that the note above accurately reflects all work, treatment, procedures, and medical decision making performed by me. Departure Information Dispostion Being Evaluated By Hospitalist Referrals Loyd Wilkerson M.D. (PCP) Patient Instructions My [facility]
[2017-10-01] MEDS ORDERED: IV FLUIDS COMPLETED PRN (18:15)
[2017-10-01 18:28] VITALS: BP 165/93; PULSE 77; TEMP 37.6; O2SAT 97; Ht 162.6 cm; Wt 95.1 kg
[2017-10-01 19:28] VITALS: BP 165/91; PULSE 84; TEMP 37.1; O2SAT 96
--- NOTE | 2017-10-01 19:46 | History and Physical ---
History & Physical Date & Time of Service: Oct 01, 2017 at 18:15 Chief Complaint: Chest Pain Primary Care Physician: Loyd Wilkerson M.D. History of Present Illness Source: patient, family, clinic records, hospital records Pt is 76 y/o F with PMH HTN, dyslipidemia, GERD, CKD III presented to ER from PCP office. Patient states 2 weeks ago during the middle the night had left neck pain and left arm pain lasted all night with some associated shortness of breath and resolved. States 2 nights ago and 3 nights ago had left neck pain and left arm pain during the middle the night again with sensation that needed to take a deep breath and symptoms self resolved. Pain was aggravated with range of motion of left arm. Denies any injury or trauma. Pt states today feels tired, feels hot and has diffuse arthralgias and myalgias. States this morning had coughed a couple times which was nonproductive. Denies rhinorrhea, sore throat. Today at PCP office had temp of 38.2C tympanic. Patient reports couple of weeks ago had tick bite to posterior knee. Was treated with prophylactic doxycycline at that time. Denies any known rashes. Denies ill contacts. Reports influenza vaccine this season. Denies history of known CAD or lung disease. Denies diaphoresis, N/V/D/C, MARTINEZ, dizziness, syncope, vision changes, neck stiffness, hemoptysis, orthopnea, PND, palpitations, choking, otalgia, rhinorrhea, abdominal pain, paresthesias, extremity weakness, extremity edema, rashes, urinary symptoms, weight loss. Past Medical/Surgical History Medical Problems: (1) CKD (chronic kidney disease), stage III Status: Chronic (2) Dyslipidemia Status: Chronic (3) GERD (gastroesophageal reflux disease) Status: Chronic (4) HTN (hypertension) Status: Chronic Surgical Problems: (1) Hx of appendectomy Status: Resolved (2) Hx of hysterectomy Status: Resolved (3) Hx of tonsillectomy Status: Resolved (4) S/P TKR (total knee replacement) Status: Resolved Family History Diabetes mellitus Heart disease Social History Smoking Status: Never Smoker Smokeless Tobacco Use: No Alcohol Use: none Drug Use: none Marital Status: Occupational Status: retired Immunizations History of Influenza Vaccine: Yes Influenza Vaccine Date: Mar 09, 2013 History of Tetanus Vaccine?: Yes Tetanus Immunization Date: Apr 09, 2013 History of Pneumococcal: No History of Hepatitis B Vaccine: No Allergies Coded Allergies: Oxycodone (Verified Adverse Reaction, Intermediate, nausea, 04/10/17) Gabapentin (Verified Adverse Reaction, Unknown, NIGHTMARES, 04/10/17) Home Medications Scheduled Doxycycline (Monohydrate) (Doxycycline), 100 MG PO BID Lisinopril (Zestril), 30 MG PO DAILY Omeprazole (Omeprazole), 1 TAB PO QAM Scheduled PRN Acetaminophen (Tylenol), 1-2 TABS PO Q8 PRN for Pain or Fever Review of Systems Constitutional: + problem reported (+fatigue, fever - see HPI) Eyes: No worsening of vision, No eye pain, No redness, No diplopia ENT: No hearing loss, No unusual epistaxis, No tinnitus, No trouble swallowing Respiratory: + problem reported (see HPI), No sputum, No wheezing Cardiovascular: No chest pain, No orthopnea, No PND, No edema, No palpitations , No problem reported Abdomen: No pain, No nausea, No vomiting, No diarrhea, No constipation, No GI bleeding Musculoskeletal: + joint pain (see HPI) Genitourinary - Female: No dysuria, No urinary frequency, No urinary urgency, No hematuria Neurologic: No numbness/tingling, No vertigo Endocrine: No excessive thirst, No excessive urination Hematologic / Lymphatic: No abnormal bleeding/bruising, No clotting problems, No night sweats Integumentary: No itch Physical Exam Vital Signs Date Time Temp Pulse Resp B/P (MAP) Pulse Ox O2 Delivery O2 Flow Rate FiO2 10/01/17 17:34 77 20 161/83 96 Room Air 10/01/17 16:16 80 10/01/17 15:43 Room Air 10/01/17 15:40 36.9 81 16 183/102 95 General Appearance: WD/WN, no apparent distress Head: normocephalic, atraumatic Eyes: normal inspection, sclerae normal ENT: hearing grossly normal, pharynx normal, + pertinent finding (mucous membranes moist) Neck: supple, no JVD, trachea midline, + pertinent finding (non-tender, ROM intact, no neck stiffness) Respiratory/Chest: lungs clear, normal breath sounds, no respiratory distress Cardiovascular: regular rate, rhythm, no murmur, normal peripheral pulses Abdomen/GI: normal bowel sounds, non tender, soft Back: no CVA tenderness Extremities/Musculoskelatal: normal inspection, no calf tenderness, normal capillary refill, no pedal edema Neurologic/Psych: alert, normal mood/affect, oriented x 3 Skin: normal color, warm/dry Diagnostics Laboratory Results Results Past 24 Hours Test 10/01/17 15:55 10/01/17 16:00 10/01/17 17:46 10/01/17 18:03 Range/Units White Blood Count 4.06 4.8-10.8 K/uL Red Blood Count 4.65 4.2-5.4 M/uL Hemoglobin 14.3 12.0-16.0 g/dL Hematocrit 41.4 37-47 % Mean Corpuscular Volume 89.0 80-100 fL Mean Corpuscular Hemoglobin 30.8 25-34 pg Mean Corpuscular Hemoglobin Concent 34.5 32-36 g/dl Platelet Count 102 130-400 K/uL Mean Platelet Volume 9.8 7.4-10.4 fL Neutrophils (%) (Auto) 70.2 % Lymphocytes (%) (Auto) 19.0 % Monocytes (%) (Auto) 9.6 % Eosinophils (%) (Auto) 0.5 % Basophils (%) (Auto) 0.2 % Neutrophils # (Auto) 2.85 1.4-6.5 K/uL Lymphocytes # (Auto) 0.77 1.2-3.4 K/uL Monocytes # (Auto) 0.39 0.11-0.59 K/uL Eosinophils # (Auto) 0.02 0-0.5 K/uL Basophils # (Auto) 0.01 0-0.2 K/uL RDW Standard Deviation 46.2 36.4-46.3 fL RDW Coefficient of Variation 14.2 11.5-14.5 % Immature Granulocyte % (Auto) 0.5 % Immature Granulocyte # (Auto) 0.02 0.00-0.02 K/uL Platelet Estimate DECREASED Prothrombin Time 11.0 9.0-12.0 SECONDS Prothromb Time International Ratio 1.0 0.9-1.1 Activated Partial Thromboplast Time 29.9 21.0-31.0 SECONDS Partial Thromboplastin Ratio 1.2 Sodium Level 134 136-145 mmol/L Potassium Level 4.1 3.5-5.1 mmol/L Chloride Level 105 98-107 mmol/L Carbon Dioxide Level 27 21-32 mmol/L Anion Gap 2.0 3-11 mmol/L Blood Urea Nitrogen 16 7-18 mg/dl Creatinine 1.14 0.60-1.20 mg/dl Est Creatinine Clear Calc Drug Dose 47.3 ml/min Estimated GFR () 54.1 Estimated GFR (Non- 46.7 BUN/Creatinine Ratio 13.7 10-20 Random Glucose 99 70-99 mg/dl Calcium Level 8.4 8.5-10.1 mg/dl Bedside Troponin I 0.360 0-0.045 ng/ml Test 10/01/17 18:07 Range/Units Microbiology Results 10/01/17 Blood Culture, Ordered Pending 10/01/17 Blood Culture, Ordered Pending Diagnostic Radiology CT CHEST: IMPRESSION: 1. No evidence of acute pulmonary embolism 2. Dependent groundglass opacities, likely atelectatic Impression Assessment and Plan Pt is 76 y/o F with hx HTN, dyslipidemia, GERD, CKD III presented to ER with c/ o neck pain and left arm pain and SOB 2 weeks ago and recurred couple of days ago. No CP. No neck pain/arm pain today. Today with diffuse arthralgias. ELEVATED TROPONIN R/O ACS. Risk factors: HTN, hyperlipidemia. POC troponin: 0.36 in ER. EKG: ST elevation aVR, ST depression noted V1 increased from EKG on 03/15/17. Hx T wave inversion in III on 03/15/17. Pt started on heparin IV and given ASA 324mg in ER. CT Chest negative for PE. No current CP, SOB, neck pain or arm pain. -Monitor Vitals -Repeat EKG in am -Will trend troponin -echo -lipid panel in am -ASA, metoprolol, statin -IV heparin -Nitro prn CP and repeat EKG for CP -Cardiology consult ARTHRALGIAS Today diffuse arthralgias. Hx tick bite couple weeks ago treated with prophylactic doxycycline 200mg. -lyme titer pending FEVER Temp: 38.2C in PCP office today. CT chest: dependent groundglass opacities, likely atelectatic. -pending UA, influenza swab, blood cultures -pending lyme titer -repeat cbc in am HTN last BP:147/73 -continue lisinopril CKD III Cr: 1.1. baseline ~1.0 -monitor renal functions DYSLIPIDEMIA Lipid panel on 01/2017, total: 230, LDL: 148, HDL: 38, triglycerides: 220 -lipid panel in am GERD -continue PPI DVT Prophylaxis -IV heparin Disposition admit tele Full Code as per discussion with pt Follows with Dr Wilkerson for routine care Pt was seen with Dr Gonzalez. See addendum Attending addendum: Patient seen and examined care coordinated with Mily Quinteros PA-C This is a 76-year-old female presented with left-sided sided arm and neck pain have EKG change, mild elevation of troponin At present chest pain-free Started with IV heparin drip Resting echo Cardiology consulted Please refer to the further documentation by Mily Quinteros PA-C for discussion of other chronic issues Ethel Gonzalez MD Resuscitation Status Full code VTE Prophylaxis Will order VTE Prophylaxis: Yes Additional Copies To Loyd Wilkerson M.D.
[2017-10-01 20:00] VITALS: O2SAT 96
[2017-10-01] MEDS: ATORVASTATIN 40 MG TAB PO SCH (20:41)
[2017-10-01 20:42] LABS: INFLUENZA A PCR Neg for Influ A (NEG); INFLUENZA B PCR Neg for Influ B (NEG)
[2017-10-01] MEDS ORDERED: HEPARIN 25,000 UNIT/500ML D5W 500 ML IV SCH (22:15)
[2017-10-01] MEDS ORDERED: METOPROLOL TARTRATE 25 MG TAB PO ONE (22:30)
[2017-10-01 23:17] LABS: PTT PATIENT 55.8 SECONDS (21.0-31.0)
[2017-10-02] VITALS (10 sets, daily range): BP systolic 108–161; BP diastolic 72–87; PULSE 61–78; TEMP 36.8–37.7; O2SAT 94–97
[2017-10-02 06:10] LABS: HEMATOCRIT 39.6 % (37-47); HEMOGLOBIN 13.7 g/dL (12.0-16.0); MEAN CORPUSCULAR HEMOGLOBIN 30.4 pg (25-34); MEAN CORPUSCULAR HGB CONC 34.6 g/dl (32-36); RED CELL DISTRIBUTION WIDTH CV 14.2 % (11.5-14.5); RED CELL DISTRIBUTION WIDTH SD 45.4 fL (36.4-46.3); WHITE BLOOD COUNT 2.89 K/uL (4.8-10.8)
[2017-10-02 06:24] LABS: PTT PATIENT 58.8 SECONDS (21.0-31.0)
[2017-10-02 06:33] LABS: BASO % 0.3 %; BASO ABS # 0.01 K/uL (0-0.2); EOS % 0.7 %; EOS ABS # 0.02 K/uL (0-0.5); IG# 0.01 K/uL (0.00-0.02); LYMPH % 34.3 %; LYMPH ABS # 0.99 K/uL (1.2-3.4); MEAN PLATELET VOLUME 9.9 fL (7.4-10.4); MONO ABS # 0.29 K/uL (0.11-0.59); NEUT % 54.4 %; NEUT ABS # 1.57 K/uL (1.4-6.5); PLATELET COUNT 83 K/uL (130-400)
[2017-10-02 06:39] LABS: POTASSIUM 3.6 mmol/L (3.5-5.1)
[2017-10-02 06:48] LABS: TOTAL PROTEIN 6.4 gm/dl (6.4-8.2)
--- NOTE | 2017-10-02 08:57 | ECHOCARDIOGRAM REPORT ---
*NOTICE TO RECEIVING [employer] This information is strictly Confidential and protected under [place] law. [place] law prohibits you from making any further disclosure of this information unless further disclosure is expressly permitted by the written consent of the person to whom it pertains or is authorized by law. A general authorization for the release of medical or other information is not sufficient for this purpose. Hospital accepts no responsibility if the information is made available to any other person, INCLUDING THE PATIENT. Interpretation Summary * The study was technically adequate. * There is no comparison study available. * -- Conclusions -- * Ejection Fraction = 60-65%. * There is mild concentric left ventricular hypertrophy. * The left ventricular wall motion is normal. * Grade I diastolic dysfunction, (abnormal relaxation pattern). * There is mild mitral regurgitation. * There is trace tricuspid regurgitation. * Doppler findings do not suggest pulmonary hypertension. Procedure Details * A complete two-dimensional transthoracic echocardiogram was performed (2D, M-mode, Doppler and color flow Doppler). Left Ventricle * The left ventricle is normal in size. * There is no thrombus. * There is mild concentric left ventricular hypertrophy. * Ejection Fraction = 60-65%. * Left ventricular systolic function is normal. * The left ventricular wall motion is normal. Right Ventricle * The right ventricle is normal size. * The right ventricular systolic function is normal as assessed by tricuspid annular plane systolic excursion (TAPSE) (normal >1.5 cm). Atria * The left atrial size is normal. * Right atrial size is normal. * There is no evidence of atrial septal defect, but resolution does not allow assessment for a patent foramen ovale. Mitral Valve * The mitral valve is normal. * There is no mitral valve stenosis. * There is mild mitral regurgitation. Tricuspid Valve * The tricuspid valve is normal. * There is no tricuspid stenosis. * There is trace tricuspid regurgitation. * Doppler findings do not suggest pulmonary hypertension. Aortic Valve * The aortic valve is trileaflet. * Aortic stenosis is absent. * There is no significant aortic regurgitation. Pulmonic Valve * The pulmonary valve is not well seen, but the Doppler examination is normal without significant regurgitation or stenosis. Great Vessels * The aortic root is normal size. Pericardium/Pleural * There is no pericardial effusion. Great Vessels * Normal inferior vena cava diameter and respiratory variation suggests normal central venous pressure. Left Ventricular Diastolic Function * Grade I diastolic dysfunction, (abnormal relaxation pattern). MMode 2D Measurements and Calculations IVSd 0.93 cm IVSs 1.2 cm LVIDd 3.6 cm LVIDs 2.3 cm LVPWd 0.93 cm LVPWs 1.2 cm IVS/LVPW 0.99 FS 34.3 % EDV(Teich) 53.3 ml ESV(Teich) 19.0 ml EF(Teich) 64.4 % EDV(cubed) 45.5 ml ESV(cubed) 12.9 ml EF(cubed) 71.7 % % IVS thick 24.8 % % LVPW thick 28.8 % LV mass(C)d 95.7 grams LV mass(C)dI 47.7 grams/m\S\2 LV mass(C)s 76.2 grams LV mass(C)sI 38.0 grams/m\S\2 SV(Teich) 34.3 ml SI(Teich) 17.1 ml/m\S\2 SV(cubed) 32.6 ml SI(cubed) 16.3 ml/m\S\2 Ao root diam 3.7 cm Ao root area 10.9 cm\S\2 ACS 1.3 cm LA dimension 3.3 cm asc Aorta Diam 3.8 cm LA/Ao 0.89 EDV(MOD-sp4) 105.0 ml ESV(MOD-sp4) 48.0 ml EF(MOD-sp4) 54.3 % EDV(MOD-sp2) 80.0 ml ESV(MOD-sp2) 38.0 ml EF(MOD-sp2) 52.5 % SV(MOD-sp4) 57.0 ml SI(MOD-sp4) 28.4 ml/m\S\2 SV(MOD-sp2) 42.0 ml SI(MOD-sp2) 20.9 ml/m\S\2 Doppler Measurements and Calculations MV E max tomeka 77.1 cm/sec MV A max tomeka 97.1 cm/sec MV E/A 0.79 MV P1/2t max tomeka 78.9 cm/sec MV P1/2t 112.9 msec MVA(P1/2t) 1.9 cm\S\2 MV dec slope 204.8 cm/sec\S\2 MV dec time 0.32 sec Ao V2 max 128.6 cm/sec Ao max PG 6.6 mmHg Ao max PG (full) 1.6 mmHg LV V1 max PG 5.0 mmHg LV V1 max 111.6 cm/sec PA V2 max 89.7 cm/sec PA max PG 3.2 mmHg TR max tomeka 171.3 cm/sec
[2017-10-02] MEDS: LISINOPRIL 10 MG TAB PO SCH (09:18)
[2017-10-02] MEDS: PANTOprazole SOD 40 MG TAB PO SCH (09:19)
[2017-10-02] MEDS: METOPROLOL TARTRATE 25 MG TAB PO SCH ×2 (09:19→21:58)
[2017-10-02] MEDS: ASPIRIN 81 MG ECTAB PO SCH (09:19)
[2017-10-02] MEDS ORDERED: METOPROLOL TARTRATE 1 MG/ML VIAL ONE ×2 (12:45)
[2017-10-02] MEDS ORDERED: ATROPINE SULFATE 0.1 MG/ML 5ML SYR ONE ×2 (12:45)
[2017-10-02] MEDS ORDERED: DOBUTamine HCL 12.5 MG/ML 20 ML VIAL ONE (12:45)
--- NOTE | 2017-10-02 13:11 | CARDIOLOGY CONSULTATION ---
DATE OF CONSULTATION: 10/02/2017 REFERRING: Dr. Norris PRIMARY CARE PHYSICIAN: Dr. Wilkerson INDICATIONS: Chest pain, elevated troponin, arthralgias. HISTORY OF PRESENT ILLNESS: The patient is a 76-year-old female whose past medical history is notable for hypertension, gastroesophageal reflux, chronic renal insufficiency, but no prior documented history of cardiac disease. The patient presented to the Emergency Room on urging from primary care office after presenting with a history of generalized malaise, diffuse arthralgias as well as episodes of left arm pain and associated dyspnea. The patient was notably febrile at 38.2 on outpatient visit. EKG demonstrated some mild nonspecific ST segment changes. She was referred for inpatient management. History is notable for recent tick bite exposure that was treated with prophylactic doxycycline. REVIEW OF SYSTEMS: On further review of systems, she denies history of rheumatic fever, scarlet fever, TIA, or stroke. Notes no history of thyroid or hepatic disease. Notes no history of bleeding difficulties. Notes no melena or hematochezia, dysuria or hematuria. Denies tachy palpitations, syncope or near syncope, just has described symptoms of recent weakness, was treated for diffuse arthralgias in the remote past with steroid pulse. Review of systems is otherwise negative. ALLERGIES: LISTED GABAPENTIN AND OXYCODONE. MEDICATIONS: Prior to hospitalization were lisinopril 30 mg p.o. every day, omeprazole 20 mg p.o. every day, acetaminophen and ibuprofen p.r.n. PAST MEDICAL HISTORY: As described, hypertension, dyslipidemia by past lipid testing. PAST SURGICAL HISTORY: Notable for prior tonsillectomy, appendectomy, hysterectomy, bilateral total knee replacements, and right partial Achilles tendon repair. FAMILY HISTORY: Positive for heart disease and diabetes, specifically one sister has undergone prior coronary interventions and brother has a history of myocardial infarction in his mid 60s. SOCIAL HISTORY: The patient resides in [place]. She is a nonsmoker, nondrinker. She is modestly active about her home with limitations secondary to orthopedic complaints. PHYSICAL EXAMINATION: VITAL SIGNS: Heart rate is 74, blood pressure is 145/78. HEENT EXAMINATION: Normocephalic, atraumatic. Nares without discharge. Throat was clear. NECK: Supple without thyromegaly, lymphadenopathy, or JVD. There are no carotid bruits. Carotid pulses are 2/4 without delay. LUNGS: Clear to auscultation. CARDIOVASCULAR EXAMINATION: Regular with normal S1, S2. There is no audible murmur, gallop, or rub. PMI is nondisplaced. ABDOMEN: Soft, nontender. There is no palpable hepatosplenomegaly or hepatojugular reflux. EXTREMITIES: Without cyanosis or clubbing. There is no peripheral edema. There are intact distal pulses. Femoral distal pulses are intact at 2/4. NEUROLOGIC: The patient is alert, answering questions appropriately. REVIEW OF DATA: EKG reveals sinus rhythm with nonspecific ST flattening with slight downsloping in the lateral leads on initial presentation. Serial EKGs reflect no acute changes. Echocardiogram reflects preserved LV systolic function, EF 60%-65% without wall motion abnormalities. No pericardial effusion. LABORATORY STUDIES: On presentation, white cell count was 4.0, this morning it is 2.8, platelet count was 102 and now 83. Sodium is 137, potassium is 3.6, chloride is 106, bicarb is 25, BUN is 14, creatinine is 1.0. Troponins are elevated, but flat without evolution. Albumin level is 3.0. LDL was 78, HDL was 39. TSH was 3.8. Blood cultures are pending. Lyme screen is pending with initial equivocal interrogation. Her chest CT revealed no infiltrate or edema. There are mild atheromatous changes of the aorta. IMPRESSION: This is a 76-year-old female who presents with intermittent episodes of 2 weeks' duration of left arm pain, shortness of breath, predominantly at night, presentation yesterday was associated with diffuse arthralgias and elevated temperature as well. Mild leukopenia and thrombocytopenia on laboratory testing. She has multiple risk factors of hypertension, dyslipidemia, and familial history of heart disease. I discussed findings. Given persistent symptoms and concerns, we will refer for dobutamine stress echocardiography to further delineate her cardiovascular risk. Current presentation appears to be multifactorial with possible underlying infectious etiology as well. We will continue heparin until stress testing performed. I agree with initiation of beta lesa given elevated blood pressures and we would continue such in association with chronic lisinopril usage.
--- NOTE | 2017-10-02 16:06 | DOBUTAMINE ECHO ---
*NOTICE TO RECEIVING [employer] This information is strictly Confidential and protected under [place] law. [place] law prohibits you from making any further disclosure of this information unless further disclosure is expressly permitted by the written consent of the person to whom it pertains or is authorized by law. A general authorization for the release of medical or other information is not sufficient for this purpose. Hospital accepts no responsibility if the information is made available to any other person, INCLUDING THE PATIENT. Interpretation Summary * Name: ANGELICA GARCIA Study Date: 10/02/2017 02:23 PM BP: 164/88 mmHg * Patient Location: 2T\S\E216\S\1 HR: 71 * : 1940 (M/d/yyyy) Gender: Female Height: 64 in * Age: 76 yrs Ethnicity: CA Weight: 209 lb * Ordering Physician: Casey Perry * Referring Physician: Self, Referred * Performed By: Shruti Delgadillo RCS * * Reason For Study: CHEST PAIN * BSA: 2.0 m2 * STRESS STUDY: Normal pharmacologic stress echocardiogram. No echocardiographic or ECG evidence of myocardial ischemia having achieved heart rate adequate for diagnostic purposes. Procedure Details * DOBUTAMINE ECHO, CPT#74399 Left Ventricle * The left ventricular ejection fraction increases normally with stress. The left ventricular end-systolic cavity size reduces post-stress (normal response). The left ventricular wall motion with stress is normal. * Ejection Fraction = 60-65%. * Resting wall motion: Normal. Stress wall motion: Appropriate increase in Left ventricular systolic function and decrease in cavity size. No stress induced segmental wall motion abnormalities. Stress Parameters * The baseline ECG displays normal sinus rhythm. * Resting ECG: Diffuse nonspecific ST abnormality. * Stress ECG: No ST changes. No arrhythmias. * The stress portion of this study was personally supervised by the undersigned interpreting physician. * Rest heart rate was '71' BPM. * Rest blood pressure was '164/88' * Maximum heart rate achieved was 129 bpm. * Maximum heart rate was 89 % of maximum age-predicted heart rate. * Maximum blood pressure was '180/73' * Maximum Dobutamine infusion rate was '30' mcg/kg/min. * A total of .75 mg of intravenous Atropine was used to supplement Dobutamine for heart rate response. * Dobutamine infusion was terminated due to achieving target heart rate * A total of 5 mg of IV Metoprolol was administered to reverse Dobutamine-induced tachycardia. * The patient did not exhibit any symptoms during drug infusion. * Normal blood pressure response to exercise. * Normal heart rate and blood pressure response to dobutamine/atropine infusion. Mild palpitations reported with dobutamine infusion.
--- NOTE | 2017-10-02 16:47 | Progress Note ---
Medicine Progress Note Date & Time of Visit: Oct 02, 2017 at 16:47 . Subjective CC: Follow-up visit for neck pain, arm pain, elevated troponin. HPI: Admitted last evening with left neck and arm pain. Seen in consultation by Cardiology. Dobutamine stress echocardiogram recommended in light of risk factors, symptoms , elevated troponin. The study was performed this afternoon. There is no stress-induced ischemia. Intermittent low-grade fevers. Diffuse arthralgias. Had a tick bite about a month ago. ROS: General- as noted above in HPI Resp- no cough; no shortness of breath Cardiac- no chest pain, no edema GI- no nausea, no vomiting, no diarrhea - no dysuria, no difficulty voiding . Objective Last 8 Hrs Date Time Temp Pulse Resp B/P (MAP) Pulse Ox O2 Delivery O2 Flow Rate FiO2 10/02/17 15:28 37.0 73 20 113/76 (88) 96 Room Air 10/02/17 12:00 Room Air 10/02/17 11:31 36.9 61 20 134/82 (99) 95 Room Air Physical Exam: General-lying in bed, no distress Lungs- clear to auscultation; no respiratory distress Cardiovascular- RRR; no murmur; no gallop; no JVD; no pretibial edema Abdomen- + bowel sounds, soft, nontender Extremities- no cyanosis; no calf tenderness Neuro- alert, oriented Skin- warm & dry; no rash . Laboratory Results: Last 24 Hours Test 10/01/17 18:27 10/01/17 18:50 10/01/17 22:42 10/02/17 05:54 Influenza Type A (RT-PCR) Neg for Influ A Influenza Type B (RT-PCR) Neg for Influ B Urine Color YELLOW Urine Appearance CLEAR Urine pH 7.0 Urine Specific [place] 1.029 Urine Protein NEG Urine Glucose (UA) NEG Urine Ketones NEG Urine Occult Blood TRACE Urine Nitrite NEG Urine Bilirubin NEG Urine Urobilinogen NEG Urine Leukocyte Esterase TRACE Urine WBC (Auto) 1-5 /hpf Urine RBC (Auto) 0-4 /hpf Urine Hyaline Casts (Auto) 0 /lpf Urine Epithelial Cells (Auto) 0-5 /lpf Urine Bacteria (Auto) NEG Activated Partial Thromboplast Time 55.8 SECONDS 58.8 SECONDS Partial Thromboplastin Ratio 2.1 2.3 Troponin I 0.369 ng/ml 0.339 ng/ml White Blood Count 2.89 K/uL Red Blood Count 4.50 M/uL Hemoglobin 13.7 g/dL Hematocrit 39.6 % Mean Corpuscular Volume 88.0 fL Mean Corpuscular Hemoglobin 30.4 pg Mean Corpuscular Hemoglobin Concent 34.6 g/dl Platelet Count 83 K/uL Mean Platelet Volume 9.9 fL Neutrophils (%) (Auto) 54.4 % Lymphocytes (%) (Auto) 34.3 % Monocytes (%) (Auto) 10.0 % Eosinophils (%) (Auto) 0.7 % Basophils (%) (Auto) 0.3 % Neutrophils # (Auto) 1.57 K/uL Lymphocytes # (Auto) 0.99 K/uL Monocytes # (Auto) 0.29 K/uL Eosinophils # (Auto) 0.02 K/uL Basophils # (Auto) 0.01 K/uL RDW Standard Deviation 45.4 fL RDW Coefficient of Variation 14.2 % Immature Granulocyte % (Auto) 0.3 % Immature Granulocyte # (Auto) 0.01 K/uL Platelet Estimate DECREASED Red Blood Cell Morphology Unremarkable Sodium Level 137 mmol/L Potassium Level 3.6 mmol/L Chloride Level 106 mmol/L Carbon Dioxide Level 25 mmol/L Anion Gap 7.0 mmol/L Blood Urea Nitrogen 14 mg/dl Creatinine 1.00 mg/dl Est Creatinine Clear Calc Drug Dose 53.6 ml/min Estimated GFR () 63.4 Estimated GFR (Non- 54.7 BUN/Creatinine Ratio 14.1 Random Glucose 91 mg/dl Calcium Level 8.0 mg/dl Total Bilirubin 1.0 mg/dl Aspartate Amino Transf (AST/SGOT) 34 U/L Alanine Aminotransferase (ALT/SGPT) 32 U/L Alkaline Phosphatase 88 U/L Total Protein 6.4 gm/dl Albumin 3.0 gm/dl Globulin 3.4 gm/dl Albumin/Globulin Ratio 0.9 Triglycerides Level 126 mg/dl Cholesterol Level 142 mg/dl HDL Cholesterol 39 mg/dl LDL Cholesterol, Calculated 78 mg/dl VLDL Cholesterol, Calculated 25 mg/dl Cholesterol/HDL Ratio 3.6 Test 10/02/17 16:42 Date/Time Source Procedure Growth Status 10/01/17 19:12 Blood Blood Culture Pending Received 10/01/17 19:01 Blood Blood Culture Pending Received Assessment & Plan LEFT NECK & ARM PAIN / ELEVATED TROPONINS Presented with nonexertional left neck and arm pain. Cardiology consulted. Serum troponins 0.360, 0.369, 0.339. EKG in the ED demonstrated normal sinus rhythm with ST depression inferolaterally. Repeat EKG this morning demonstrated normal sinus rhythm, less pronounced ST depression inferolaterally. Rest echocardiogram demonstrated mild concentric LVH, normal left ventricular wall motion, LVEF 60-65%, grade 1 diastolic dysfunction, mild mitral regurgitation, mild tricuspid regurgitation. Dobutamine stress echocardiogram did not show any evidence of stress-induced ischemia. CTA chest negative for pulmonary embolism. FEVER / ARTHRALGIAS [place] area and has occasional tick bites. Last apparent tick bite was about a month ago. Received 2 doses of doxycycline. CBC shows leukopenia and thrombocytopenia. May have tickborne illness-Lyme disease, anaplasmosis, or ehrlichiosis. Lyme screen IgM equivocally positive. Western blot pending. Check tickborne PCR panel. Start empiric doxycycline. LEUKOPENIA / THROMBOCYTOPENIA White count on admission 4060, today = 2890. Platelet count on admission 102,000 today = 83,000. Could have viral illness or tickborne illness as discussed above. Follow. HYPERTENSION Continue lisinopril. GERD Continue PPI. VTE PROPHYLAXIS Initially received IV heparin for possible acute coronary syndrome. IV heparin discontinued. No further anticoagulants due to thrombocytopenia. SCDs. Ambulate. DISPOSITION Expected discharge to home. Family Medicine follow-up with Dr. Wilkerson. . Current Inpatient Medications: Current Inpatient Medications Medications (Trade) Dose Ordered Sig/Jorge Route Start Time Stop Time Status Last Admin Dose Admin Ioversol (Optiray 320) 100 ml UD PRN IV 10/01/17 16:30 10/05/17 16:29 Acetaminophen (Tylenol Tab) 650 mg Q4H PRN PO 10/01/17 18:00 10/31/17 17:59 Ondansetron HCl (Zofran Inj) 4 mg Q6H PRN IV 10/01/17 18:00 10/31/17 17:59 Nitroglycerin (Nitrostat Tab) 0.4 mg UD PRN SL 10/01/17 18:00 10/31/17 17:59 Aspirin (Ecotrin Tab) 81 mg QAM PO 10/02/17 09:00 11/01/17 08:59 10/02/17 09:19 81 MG Polyethylene (Miralax Powder Packet) 17 gm DAILY PRN PO 10/01/17 18:00 10/31/17 17:59 Miscellaneous (Iv Fluids Completed) 1 ea PRN PRN N/A 10/01/17 18:15 10/01/18 18:14 Lisinopril (Zestril Tab) 30 mg DAILY PO 10/02/17 09:00 11/01/17 08:59 10/02/17 09:18 30 MG Pantoprazole Sodium (Protonix Tab) 40 mg QAM PO 10/02/17 09:00 11/01/17 08:59 10/02/17 09:19 40 MG Atorvastatin Calcium (Lipitor Tab) 40 mg QPM PO 10/01/17 21:00 10/31/17 20:59 10/01/17 20:41 40 MG Metoprolol Tartrate (Lopressor Tab) 12.5 mg BID PO 10/02/17 09:00 11/01/17 08:59 10/02/17 09:19 12.5 MG
[2017-10-02] MEDS ORDERED: DOXYCYCLINE HYCLATE 100 MG CAP PO ONE (20:21)
[2017-10-02] MEDS: ATORVASTATIN 40 MG TAB PO SCH (21:58)
[2017-10-03 07:02] LABS: HEMATOCRIT 39.3 % (37-47); HEMOGLOBIN 13.3 g/dL (12.0-16.0); MEAN CELL VOLUME 89.1 fL (80-100); MEAN CORPUSCULAR HEMOGLOBIN 30.2 pg (25-34); MEAN CORPUSCULAR HGB CONC 33.8 g/dl (32-36); RED CELL DISTRIBUTION WIDTH CV 14.4 % (11.5-14.5); RED CELL DISTRIBUTION WIDTH SD 47.3 fL (36.4-46.3); WHITE BLOOD COUNT 3.64 K/uL (4.8-10.8)
[2017-10-03 07:10] LABS: PLATELET COUNT 86 K/uL (130-400)
[2017-10-03 07:34] LABS: BASO % 0.5 %; BASO ABS # 0.02 K/uL (0-0.2); EOS % 1.6 %; EOS ABS # 0.06 K/uL (0-0.5); IG# 0.01 K/uL (0.00-0.02); LYMPH % 32.7 %; LYMPH ABS # 1.19 K/uL (1.2-3.4); MONO % 19.2 %; NEUT % 45.7 %; NEUT ABS # 1.66 K/uL (1.4-6.5)
[2017-10-03 07:59] VITALS: BP 99/62; PULSE 59; TEMP 36.7; O2SAT 98
[2017-10-03 08:00] VITALS: BP 142/85; PULSE 68
[2017-10-03] MEDS ORDERED: DOXYCYCLINE HYCLATE 100 MG CAP PO SCH (08:00)
[2017-10-03] MEDS: LISINOPRIL 10 MG TAB PO SCH (08:01)
[2017-10-03] MEDS: PANTOprazole SOD 40 MG TAB PO SCH (08:02)
[2017-10-03] MEDS: METOPROLOL TARTRATE 25 MG TAB PO SCH (08:02)
[2017-10-03] MEDS: ASPIRIN 81 MG ECTAB PO SCH (08:02)
[2017-10-03 08:30] VITALS: O2SAT 98
[2017-10-03] MEDS ORDERED: DOXY-300 PO (13:28)
--- NOTE | 2017-10-03 13:37 | Discharge Instructions ---
Discharge Instructions Date of Service Oct 03, 2017. Admission Reason for Admission: neck and arm pain . Discharge Discharge Diagnosis / Problem: neck and arm pain Discharge Goals Goal(s): Decrease discomfort, Improve disease control Activity Recommendations Activity Limitations: resume your previous activity . Instructions / Follow-Up Instructions / Follow-Up APPOINTMENTS: FAMILY MEDICINE 10/09/2017 10:20 AM Kamran Maria MD (covering for Dr. Wilkerson) [facility] OTHER INSTRUCTIONS: Despite initial EKG changes and blood tests, echocardiogram and stress test looked OK. You did not have a heart attack and there was no sign of severe blockage in your coronary arteries. There was no sign of blood clots in your lungs. Your blood pressure was a bit high. This may have been due to stress of not feeling well. Continue lisinopril. Your blood pressure will be followed in clinic. You had a low grad fever. Lyme test was equivocally positive indicating possible recent exposure. Tick also carry other infections like Ehrlichiosis and Anaplasmosis which should be considered. More definitive tests were sent to reference lab in [place]- results should be back in about 7-10 days. Take doxycycline 100 mg twice a day. Prescription is for 14 days with 1 refill. Decision whether or not to get refill will depend on pending test results and how you are feeling. Avoid excessive sun exposure while taking doxycycline. Seek medical attention if you have: * temperature above 101 * chest pain or trouble breathing * abdominal pain, nausea, vomiting * diarrhea, dark stools or bloody stools * any unanswered questions or concerns Call 911 if symptoms are severe. Call if you have any questions or problems. My cell # is [phone]. You can also reach a [facility] hospitalist on duty at [facility] 24 hours a day by calling [phone]. Please take good care of yourself. Nitish Norris . Current Hospital Diet Patient's current hospital diet: AHA Diet (Heart Healthy) Discharge Diet Recommended Diet: AHA Diet (Heart Healthy) Procedures Procedures Performed: echocardiogram stress test CT scan of chest Pending Studies Studies pending at discharge: yes List of pending studies: special tests for Lyme disease, ehrlichiosis, anaplasmosis Laboratory Results Lipid Panel Test 10/02/17 05:54 Range/Units Triglycerides Level 126 0-150 mg/dl Cholesterol Level 142 0-200 mg/dl HDL Cholesterol 39 mg/dl Cholesterol/HDL Ratio 3.6 LDL Cholesterol, Calculated 78 mg/dl Medical Emergencies . Who to Call and When: Medical Emergencies: If at any time you feel your situation is an emergency, please call 911 immediately. . Non-Emergent Contact Non-Emergency issues call your: Primary Care Provider, Hospital Doctor . . "Provider Documentation" section prepared by Nitish Norris. .
[2017-10-03 13:50] VITALS: BP 142/85; PULSE 68; TEMP 36.7; O2SAT 98
--- NOTE | 2017-10-03 20:59 | Progress Note ---
Medicine Progress Note Date & Time of Visit: Oct 03, 2017 at ~ 13:00 . Subjective Feels better. Had some sweats last night, but no fever. Still has moderately severe arthralgias. No anginal symptoms or dyspnea. . Objective Last 8 Hrs Date Time Temp Pulse Resp B/P (MAP) Pulse Ox O2 Delivery O2 Flow Rate FiO2 10/03/17 13:50 36.7 68 18 98 Room Air Physical Exam: General- no distress Lungs- clear to auscultation; no respiratory distress Cardiovascular- RRR; no murmur; no gallop; no JVD; no pretibial edema Abdomen- + bowel sounds, soft, nontender Extremities- no cyanosis; no calf tenderness; no overt synovitis of hand/wrist joints Neuro- alert, oriented Skin- warm & dry; no rash . Laboratory Results: Last 24 Hours Test 10/03/17 06:50 White Blood Count 3.64 K/uL Red Blood Count 4.41 M/uL Hemoglobin 13.3 g/dL Hematocrit 39.3 % Mean Corpuscular Volume 89.1 fL Mean Corpuscular Hemoglobin 30.2 pg Mean Corpuscular Hemoglobin Concent 33.8 g/dl Platelet Count 86 K/uL Mean Platelet Volume 10.0 fL Neutrophils (%) (Auto) 45.7 % Lymphocytes (%) (Auto) 32.7 % Monocytes (%) (Auto) 19.2 % Eosinophils (%) (Auto) 1.6 % Basophils (%) (Auto) 0.5 % Neutrophils # (Auto) 1.66 K/uL Lymphocytes # (Auto) 1.19 K/uL Monocytes # (Auto) 0.70 K/uL Eosinophils # (Auto) 0.06 K/uL Basophils # (Auto) 0.02 K/uL RDW Standard Deviation 47.3 fL RDW Coefficient of Variation 14.4 % Immature Granulocyte % (Auto) 0.3 % Immature Granulocyte # (Auto) 0.01 K/uL Assessment & Plan LEFT NECK & ARM PAIN / ELEVATED TROPONINS Presented with nonexertional left neck and arm pain. Cardiology consulted. Serum troponins 0.360, 0.369, 0.339. EKG in the ED demonstrated normal sinus rhythm with ST depression inferolaterally. Repeat EKG 10/02 demonstrated normal sinus rhythm, less pronounced ST depression inferolaterally. Rest echocardiogram demonstrated mild concentric LVH, normal left ventricular wall motion, LVEF 60-65%, grade 1 diastolic dysfunction, mild mitral regurgitation, mild tricuspid regurgitation. Dobutamine stress echocardiogram did not show any evidence of stress-induced ischemia. CTA chest negative for pulmonary embolism. Suspect her symptoms secondary to systemic infection as discussed below. FEVER / ARTHRALGIAS [place] area and has occasional tick bites. Last apparent tick bite was about a month ago. Received 2 doses of doxycycline. CBC showed leukopenia and thrombocytopenia. May have tickborne illness-Lyme disease, anaplasmosis, or ehrlichiosis. Lyme screen IgM equivocally positive. Western blot pending. Tickborne PCR panel ordered, results pending at time of discharge. Started empiric doxycycline. Duration of doxycycline therapy will depend on clinical response and results of PCR testing. Will probably need treatment for at least 14 days. Given Rx for 14 days with 1 refill. LEUKOPENIA / THROMBOCYTOPENIA White count on admission 4060, 2890 yesterday, 3640 today. Platelet count on admission 102,000, 83,000 yesterday, 86,000 today. Could have viral illness or tickborne illness as discussed above. Follow. HYPERTENSION Continue lisinopril. GERD Continue PPI. VTE PROPHYLAXIS Initially received IV heparin for possible acute coronary syndrome. IV heparin discontinued. No further anticoagulants due to thrombocytopenia. SCDs. Ambulate. DISPOSITION Discharge to home. Family Medicine follow-up with Dr. Wilkerson. .
--- NOTE | 2017-10-04 22:44 | Discharge Summary ---
Discharge Summary Date of Service Oct 04, 2017. Discharge Summary Admission Date: Oct 01, 2017 at 17:48 Discharge Date: Oct 03, 2017 Discharge Disposition: Home Principal Diagnosis: anaplasmosis . Secondary Diagnoses/Problems: Chronic Medical Problems: (1) CKD (chronic kidney disease), stage III Status: Chronic (2) Dyslipidemia Status: Chronic (3) GERD (gastroesophageal reflux disease) Status: Chronic (4) HTN (hypertension) Status: Chronic Surgical Problems: (1) Hx of appendectomy Status: Resolved (2) Hx of hysterectomy Status: Resolved (3) Hx of tonsillectomy Status: Resolved (4) S/P TKR (total knee replacement) Status: Resolved . Procedures: Cardiac monitoring CTA chest Rest echocardiogram Dobutamine stress echocardiogram . Consultations: Cardiology with Dr. Perry . Pending Studies/Follow-Up: Lyme Western blot Please check follow-up CBC in clinic. . Medication Reconciliation New Medications: Doxycycline (Monohydrate) (Doxycycline) 100 Mg Cap 100 MG PO BID, #28 CAP 1 Refill Continued Medications: Acetaminophen (Tylenol) 500 Mg Tab 1-2 TABS PO Q8 PRN for Pain or Fever, TAB Lisinopril (Zestril) 30 Mg Tab 30 MG PO DAILY, TAB Omeprazole (Omeprazole) 20 Mg Tab 1 TAB PO QAM Admission Information HPI (per Admitting provider): Pt is 76 y/o F with PMH HTN, dyslipidemia, GERD, CKD III presented to ER from PCP office. Patient states 2 weeks ago during the middle the night had left neck pain and left arm pain lasted all night with some associated shortness of breath and resolved. States 2 nights ago and 3 nights ago had left neck pain and left arm pain during the middle the night again with sensation that needed to take a deep breath and symptoms self resolved. Pain was aggravated with range of motion of left arm. Denies any injury or trauma. Pt states today feels tired, feels hot and has diffuse arthralgias and myalgias. States this morning had coughed a couple times which was nonproductive. Denies rhinorrhea, sore throat. Today at PCP office had temp of 38.2C tympanic. Patient reports couple of weeks ago had tick bite to posterior knee. Was treated with prophylactic doxycycline at that time. Denies any known rashes. Denies ill contacts. Reports influenza vaccine this season. Denies history of known CAD or lung disease. Denies diaphoresis, N/V/D/C, MARTINEZ, dizziness, syncope, vision changes, neck stiffness, hemoptysis, orthopnea, PND, palpitations, choking, otalgia, rhinorrhea, abdominal pain, paresthesias, extremity weakness, extremity edema, rashes, urinary symptoms, weight loss. . Physical Exam (per Admitting): General Appearance: WD/WN, no apparent distress Head: normocephalic, atraumatic Eyes: normal inspection, sclerae normal ENT: hearing grossly normal, pharynx normal, + pertinent finding (mucous membranes moist) Neck: supple, no JVD, trachea midline, + pertinent finding (non-tender, ROM intact, no neck stiffness) Respiratory/Chest: lungs clear, normal breath sounds, no respiratory distress Cardiovascular: regular rate, rhythm, no murmur, normal peripheral pulses Abdomen/GI: normal bowel sounds, non tender, soft Back: no CVA tenderness Extremities/Musculoskelatal: normal inspection, no calf tenderness, normal capillary refill, no pedal edema Neurologic/Psych: alert, normal mood/affect, oriented x 3 Skin: normal color, warm/dry Hospital Course LEFT NECK & ARM PAIN / ELEVATED TROPONINS Presented with nonexertional left neck and arm pain. Cardiology consulted. Serum troponins 0.360, 0.369, 0.339. EKG in the ED demonstrated normal sinus rhythm with ST depression inferolaterally. Repeat EKG 10/02 demonstrated normal sinus rhythm, less pronounced ST depression inferolaterally. Rest echocardiogram demonstrated mild concentric LVH, normal left ventricular wall motion, LVEF 60-65%, grade 1 diastolic dysfunction, mild mitral regurgitation, mild tricuspid regurgitation. Dobutamine stress echocardiogram did not show any evidence of stress-induced ischemia. CTA chest negative for pulmonary embolism. Suspect her symptoms secondary to systemic infection as discussed below. FEVER / ARTHRALGIAS = ANAPLASMOSIS [place] and has occasional tick bites. Last apparent tick bite was about a month ago. Received 2 doses of doxycycline. CBC showed leukopenia and thrombocytopenia. May have tickborne illness-Lyme disease, anaplasmosis, or ehrlichiosis. Lyme screen IgM equivocally positive. Western blot pending. Tickborne PCR panel ordered, results pending at time of discharge. Results reported after discharge: Panel positive for A. phagocytophilum, negative for Babesia microti, B. miyamotoi, E. chaffeensis, Lyme disease. Treated with doxycycline. Duration of doxycycline therapy will depend on clinical response and results of PCR testing. Will probably need treatment for at least 14 days. Given Rx for 14 days with 1 refill. LEUKOPENIA / THROMBOCYTOPENIA White count on admission 4060, 2890 10/02, 3640 10/03. Platelet count on admission 102,000, 83,000 10/02, 86,000 10/03. Probably secondary to anaplasmosis as discussed above. Follow. HYPERTENSION Continue lisinopril. GERD Continue PPI. VTE PROPHYLAXIS Initially received IV heparin for possible acute coronary syndrome. IV heparin discontinued. No further anticoagulants due to thrombocytopenia. SCDs. Ambulate. DISPOSITION Discharge to home. Family Medicine follow-up with Dr. Wilkerson. . Discharge Instructions Date of Service Oct 03, 2017. Admission Reason for Admission: neck and arm pain . Discharge Discharge Diagnosis / Problem: neck and arm pain Discharge Goals Goal(s): Decrease discomfort, Improve disease control Activity Recommendations Activity Limitations: resume your previous activity . Instructions / Follow-Up Instructions / Follow-Up APPOINTMENTS: FAMILY MEDICINE 10/09/2017 10:20 AM Kamran Maria MD (covering for Dr. Wilkerson) [facility] OTHER INSTRUCTIONS: Despite initial EKG changes and blood tests, echocardiogram and stress test looked OK. You did not have a heart attack and there was no sign of severe blockage in your coronary arteries. There was no sign of blood clots in your lungs. Your blood pressure was a bit high. This may have been due to stress of not feeling well. Continue lisinopril. Your blood pressure will be followed in clinic. You had a low grad fever. Lyme test was equivocally positive indicating possible recent exposure. Tick also carry other infections like Ehrlichiosis and Anaplasmosis which should be considered. More definitive tests were sent to reference lab in [place]- results should be back in about 7-10 days. Take doxycycline 100 mg twice a day. Prescription is for 14 days with 1 refill. Decision whether or not to get refill will depend on pending test results and how you are feeling. Avoid excessive sun exposure while taking doxycycline. Seek medical attention if you have: * temperature above 101 * chest pain or trouble breathing * abdominal pain, nausea, vomiting * diarrhea, dark stools or bloody stools * any unanswered questions or concerns Call 911 if symptoms are severe. Call if you have any questions or problems. My cell # is [phone]. You can also reach a [facility] hospitalist on duty at [facility] 24 hours a day by calling [phone]. Please take good care of yourself. Nitish Norris . Current Hospital Diet Patient's current hospital diet: AHA Diet (Heart Healthy) Discharge Diet Recommended Diet: AHA Diet (Heart Healthy) Procedures Procedures Performed: echocardiogram stress test CT scan of chest Pending Studies Studies pending at discharge: yes List of pending studies: special tests for Lyme disease, ehrlichiosis, anaplasmosis Laboratory Results Lipid Panel Test 10/02/17 05:54 Range/Units Triglycerides Level 126 0-150 mg/dl Cholesterol Level 142 0-200 mg/dl HDL Cholesterol 39 mg/dl Cholesterol/HDL Ratio 3.6 LDL Cholesterol, Calculated 78 mg/dl Medical Emergencies . Who to Call and When: Medical Emergencies: If at any time you feel your situation is an emergency, please call 911 immediately. . Non-Emergent Contact Non-Emergency issues call your: Primary Care Provider, Hospital Doctor . . "Provider Documentation" section prepared by Nitish Norris. .
== END 2017-10-03 14:28 | disposition home or self-care (01) ==
LOC: C.EDB 15:36 → C.2T 17:48 → ENRESERV 18:05 → C.4E 10-02 18:48
PROVIDERS: ADMIT Hospitalist; ATTEND Hospitalist
DX: M54.2 Cervicalgia (principal); M79.602 Pain in left arm; A77.49 Other ehrlichiosis; N18.3 Chronic kidney disease, stage 3 (moderate); E78.5 Hyperlipidemia, unspecified; K21.9 Gastro-esophageal reflux disease without esophagitis; I10 Essential (primary) hypertension; D69.6 Thrombocytopenia, unspecified; Z90.49 Acquired absence of other specified parts of digestive tract; Z90.710 Acquired absence of both cervix and uterus; Z96.659 Presence of unspecified artificial knee joint; Z88.5 Allergy status to narcotic agent; Z83.3 Family history of diabetes mellitus; Z82.49 Family history of ischemic heart disease and other diseases of the circulatory system